=== PATIENT | female | born 1975 | race Caucasian/White ===

== ENCOUNTER 2020-04-08 08:52 | Outpatient (REF) | payer OTHER, SELFPAY ==
--- NOTE | 2020-04-08 08:59 | XR_ITS ---
EXAMINATION: XR KNEE, LEFT CLINICAL INFORMATION: Pain COMPARISON: None TECHNIQUE: Four views of the left knee. FINDINGS: There is mild varus angulation at the knee joint. Bone alignment is otherwise normal. No fracture or dislocation is seen. There is evidence of severe arthritis at the medial femoral tibial and patellofemoral joints with joint space narrowing and osteophyte formation. There is a large joint effusion. XR/XR knee LT 4V IMPRESSION: Severe left knee arthritis.
== END 2020-04-08 08:53 | disposition home or self-care (01) ==
LOC: HO.HMGCX 08:52
PROVIDERS: PCP Internal Medicine; Visit Provider Nurse Practitioner Family
DX: M25.562 Pain in left knee (principal)
CPT/HCPCS: 73564

== ENCOUNTER 2020-05-21 07:37 | Outpatient (REF) | payer OTHER, SELFPAY ==
[2020-05-21 11:34] LABS: Glucose Urine UA NEG (NEG); Hematocrit 40.2 % (37-47); Leukocyte Esterase Urine NEG (NEG); Mean Corpuscular HGB Conc 32.3 g/dl (31.0-35.0); Mean Corpuscular Hemoglobin 30.4 pg (27.0-33.0); Mean Corpuscular Volume 93.9 fL (80-98); Mean Platelet Volume 12.5 fL (9.4-12.3); Nitrite Urine NEG (NEG); PH 7.5 (5.0-8.0); Platelet Count 285 X10*3/uL (160-400); Red Blood Count 4.28 X10*6/uL (4.20-5.50); Red Cell Distribution Width 12.9 % (11.0-16.0); Specific Gravity - Urine 1.025 (1.005-1.025); Urine Blood TRACE (NEG); Urine Ketones NEG (NEG); Urine Protein 2+ MG/DL (NEG-TRACE); White Blood Count 9.2 X10*3/uL (4.8-10.8)
[2020-05-21 11:37] LABS: Appearance Urine HAZY; Color Urine YELLOW
[2020-05-21 11:51] LABS: Bacteria Urine 1+ /LPF; RBC Urine 0-2 /HPF (0); Squamous Epithelial Cell Urine 4+ /LPF; WBC Urine 0-2 /HPF (0-4)
[2020-05-21 11:58] LABS: Alanine Aminotransferase 25 U/L (0-31); Albumin Level 4.1 g/dL (3.5-5.0); Alkaline Phosphatase 40 U/L (39-117); Anion Gap 15 (12-20); Aspartate Amino Transferase 19 U/L (5-31); Bilirubin Total 0.5 mg/dL (0.0-1.0); Blood Urea Nitrogen 16 mg/dL (9-16); Calcium 8.8 mg/dL (8.4-10.2); Carbon Dioxide 26 mmol/L (22-29); Chloride 102 mmol/L (96-108); Cholesterol 308 mg/dL; Estimated Glomerular Filt Rate > 60; Glucose Random 87 mg/dL (60-115); HDL Cholesterol 54 mg/dL; Potassium 4.7 mmol/L (3.3-5.1); Sodium 138 mmol/L (135-145); Total Protein 6.9 g/dL (6.5-8.0); Triglycerides 441 mg/dL
[2020-05-21 12:20] LABS: TSH reflex Free T4 3.27 uIU/mL (0.32-4.0)
== END 2020-05-21 07:38 | disposition home or self-care (01) ==
LOC: HO.HMGCLDS 07:37
PROVIDERS: PCP Internal Medicine; Visit Provider Internal Medicine
DX: M17.12 Unilateral primary osteoarthritis, left knee (principal); I10 Essential (primary) hypertension; E78.5 Hyperlipidemia, unspecified
CPT/HCPCS: 20610; 36415; 80053; 80061; 81001; 84443; 85027; 99202; J1040

== ENCOUNTER 2020-07-15 07:01 | Outpatient (REF) | payer OTHER, SELFPAY ==
[2020-07-15 11:34] LABS: Glucose Urine UA NEG (NEG); Leukocyte Esterase Urine 1+ (NEG); Nitrite Urine NEG (NEG); Specific Gravity - Urine <= 1.005 (1.005-1.025); Urine Blood TRACE (NEG); Urine Ketones NEG (NEG); Urine Protein NEG (NEG-TRACE)
[2020-07-15 11:39] LABS: Appearance Urine CLEAR; Color Urine STRAW
[2020-07-15 11:54] LABS: RBC Urine 0 /HPF (0); Squamous Epithelial Cell Urine 2+ /LPF
[2020-07-15 11:57] LABS: Alanine Aminotransferase 21 U/L (0-31); Albumin Level 4.1 g/dL (3.5-5.0); Alkaline Phosphatase 41 U/L (39-117); Anion Gap 14 (12-20); Aspartate Amino Transferase 17 U/L (5-31); Bilirubin Total 0.4 mg/dL (0.0-1.0); Blood Urea Nitrogen 16 mg/dL (9-16); Carbon Dioxide 24 mmol/L (22-29); Chloride 105 mmol/L (96-108); Cholesterol 196 mg/dL; Estimated Glomerular Filt Rate > 60; Glucose Fasting 98 mg/dL (60-99); HDL Cholesterol 74 mg/dL; LDL Cholesterol Calculated 88 mg/dl; Potassium 4.6 mmol/L (3.3-5.1); Sodium 138 mmol/L (135-145); Total Protein 7.1 g/dL (6.5-8.0); Triglycerides 174 mg/dL
== END 2020-07-15 07:02 | disposition home or self-care (01) ==
LOC: HO.HMGCLDS 07:01
PROVIDERS: PCP Internal Medicine; Visit Provider Internal Medicine
DX: E78.5 Hyperlipidemia, unspecified (principal); I10 Essential (primary) hypertension
CPT/HCPCS: 36415; 80053; 80061; 81001

== ENCOUNTER 2020-07-29 08:46 | Outpatient (REF) | payer OTHER, SELFPAY ==
--- NOTE | ~2020-07-29 | US_ITS ---
EXAMINATION: US RETROPERITONEAL LIMITED (RENAL ONLY) and renal Doppler exam CLINICAL INFORMATION: Essential primary hypertension. COMPARISON: None TECHNIQUE: Grayscale imaging of the kidneys. Grayscale and color Doppler imaging of the aorta, bilateral renal arteries and renal veins including waveform spectral analysis. FINDINGS: RIGHT KIDNEY: 11.3 x 5 x 7 cm (SAG x AP x TRV). The kidney is normal in size, contour, and echogenicity. Renal cortical thickness is normal. No calculi or focal parenchymal lesions. No hydronephrosis. LEFT KIDNEY: 11.3 x 7.5 x 6.7 cm (SAG x AP x TRV). The kidney is normal in size, contour, and echogenicity. Renal cortical thickness is normal. No calculi or focal parenchymal lesions. No hydronephrosis. The visualized abdominal aorta is normal in caliber. Aortic peak velocity is slightly elevated at 134 cm/s. This makes calculation of the aorta and renal artery ratio inaccurate. Right renal artery is patent. Right renal artery peak systolic velocities are normal measuring 93 cm/s proximally, 129 cm/s in the midportion and 174 cm/s distally. Resistive indices of the segmental renal arteries in the right kidney are normal measuring 0.7. The right renal vein is patent. The left renal artery is patent. Left renal artery peak systolic velocities are normal measuring 119 cm/s proximally, 138 cm/s in the midportion and 100 cm/s distally. Resistive indices of the segmental renal arteries in the left kidney are normal measuring 0.6-0.7. The left renal vein is patent. US/US renal doppler IMPRESSION: Normal renal ultrasound. Slightly elevated peak systolic velocity in the mid abdominal aorta making calculation of the renal artery to aorta ratio is suboptimal. Otherwise normal renal Doppler exam.
--- NOTE | ~2020-07-29 | US_ITS ---
EXAMINATION: US RETROPERITONEAL LIMITED (RENAL ONLY) and renal Doppler exam CLINICAL INFORMATION: Essential primary hypertension. COMPARISON: None TECHNIQUE: Grayscale imaging of the kidneys. Grayscale and color Doppler imaging of the aorta, bilateral renal arteries and renal veins including waveform spectral analysis. FINDINGS: RIGHT KIDNEY: 11.3 x 5 x 7 cm (SAG x AP x TRV). The kidney is normal in size, contour, and echogenicity. Renal cortical thickness is normal. No calculi or focal parenchymal lesions. No hydronephrosis. LEFT KIDNEY: 11.3 x 7.5 x 6.7 cm (SAG x AP x TRV). The kidney is normal in size, contour, and echogenicity. Renal cortical thickness is normal. No calculi or focal parenchymal lesions. No hydronephrosis. The visualized abdominal aorta is normal in caliber. Aortic peak velocity is slightly elevated at 134 cm/s. This makes calculation of the aorta and renal artery ratio inaccurate. Right renal artery is patent. Right renal artery peak systolic velocities are normal measuring 93 cm/s proximally, 129 cm/s in the midportion and 174 cm/s distally. Resistive indices of the segmental renal arteries in the right kidney are normal measuring 0.7. The right renal vein is patent. The left renal artery is patent. Left renal artery peak systolic velocities are normal measuring 119 cm/s proximally, 138 cm/s in the midportion and 100 cm/s distally. Resistive indices of the segmental renal arteries in the left kidney are normal measuring 0.6-0.7. The left renal vein is patent. US/US renal BI IMPRESSION: Normal renal ultrasound. Slightly elevated peak systolic velocity in the mid abdominal aorta making calculation of the renal artery to aorta ratio is suboptimal. Otherwise normal renal Doppler exam.
== END 2020-07-29 08:47 | disposition home or self-care (01) ==
LOC: HO.US 08:46
PROVIDERS: Visit Provider Internal Medicine
DX: Q27.1 Congenital renal artery stenosis (principal); I10 Essential (primary) hypertension
CPT/HCPCS: 76775; 93975

== ENCOUNTER 2020-08-09 13:10 | Outpatient (REF) | payer OTHER, SELFPAY ==
--- NOTE | ~2020-08-09 | XR_ITS ---
EXAMINATION: XR HAND, LEFT CLINICAL INFORMATION: Carpal tunnel syndrome left hand. COMPARISON: None TECHNIQUE: PA, lateral, and oblique views of the left hand. FINDINGS: The bones and soft tissues are normal. No fracture. Alignment is anatomic. Joint spaces are maintained. No erosions or soft tissue calcifications. XR/XR hand LT min 3V IMPRESSION: Unremarkable left hand exam.
--- NOTE | ~2020-08-09 | XR_ITS ---
EXAMINATION: XR KNEE, RIGHT CLINICAL INFORMATION: Pain COMPARISON: Previous x-ray January 2017 TECHNIQUE: Four views of the right knee. FINDINGS: Bone alignment is normal. No fracture or dislocation is seen. There is arthritis at the medial femoral tibial and patellofemoral joints with joint space narrowing and osteophyte formation. There is a bony excrescence projecting off the lateral tibial metaphysis likely representing bony exostosis. This is unchanged. There may be a similar lesion projecting off the posterior tibial metaphysis as well that is stable. There is a small joint effusion. XR/XR knee RT 2V IMPRESSION: Mild arthritis. Stable bony exostosis.
== END 2020-08-09 13:11 | disposition home or self-care (01) ==
LOC: HO.HMGCX 13:10
PROVIDERS: PCP Internal Medicine; Visit Provider Internal Medicine
DX: G56.00 Carpal tunnel syndrome, unspecified upper limb (principal); M25.561 Pain in right knee; M25.562 Pain in left knee
CPT/HCPCS: 73130; 73560

== ENCOUNTER 2020-09-05 08:12 | Outpatient (REF) | payer OTHER, SELFPAY ==
[2020-09-05 11:45] LABS: Glucose Urine UA NEG (NEG); Leukocyte Esterase Urine NEG (NEG); Nitrite Urine NEG (NEG); PH 6.5 (5.0-8.0); Specific Gravity - Urine <= 1.005 (1.005-1.025); Urine Blood NEG (NEG); Urine Ketones NEG (NEG); Urine Protein NEG (NEG-TRACE)
[2020-09-05 12:00] LABS: Appearance Urine CLEAR; Color Urine YELLOW
[2020-09-05 12:35] LABS: Alanine Aminotransferase 25 U/L (0-31); Albumin Level 4.4 g/dL (3.5-5.0); Alkaline Phosphatase 45 U/L (39-117); Anion Gap 13 (12-20); Aspartate Amino Transferase 18 U/L (5-31); Bilirubin Total 0.5 mg/dL (0.0-1.0); Blood Urea Nitrogen 16 mg/dL (9-16); Calcium 9.3 mg/dL (8.4-10.2); Carbon Dioxide 25 mmol/L (22-29); Chloride 105 mmol/L (96-108); Cholesterol 230 mg/dL; Estimated Glomerular Filt Rate > 60; Glucose Fasting 100 mg/dL (60-99); HDL Cholesterol 80 mg/dL; LDL Cholesterol Calculated 131 mg/dl; Potassium 4.8 mmol/L (3.3-5.1); Sodium 138 mmol/L (135-145); Total Protein 7.5 g/dL (6.5-8.0); Triglycerides 98 mg/dL
[2020-09-05 12:37] LABS: RBC Urine 0 /HPF (0); Squamous Epithelial Cell Urine 3+ /LPF; WBC Urine 0-2 /HPF (0-4)
[2020-09-05 12:38] LABS: Bacteria Urine TRACE /LPF
== END 2020-09-05 08:13 | disposition home or self-care (01) ==
LOC: HO.HMGCLDS 08:12
PROVIDERS: PCP Internal Medicine; Visit Provider Internal Medicine
DX: E78.5 Hyperlipidemia, unspecified (principal); I10 Essential (primary) hypertension
CPT/HCPCS: 36415; 80053; 80061; 81001

== ENCOUNTER → 2020-11-05 08:14 | Outpatient (BNVA) | payer OTHER, SELFPAY | PROVIDERS: Visit Provider Orthopaedic Surgery | DX: M17.12 Unilateral primary osteoarthritis, left knee (principal) | CPT/HCPCS: 20610; 99212; J1040 ==

== ENCOUNTER 2020-12-12 07:46 | Outpatient (REF) | payer OTHER, SELFPAY ==
[2020-12-12 12:00] LABS: Alanine Aminotransferase 15 U/L (0-31); Albumin Level 4.1 g/dL (3.5-5.0); Alkaline Phosphatase 50 U/L (39-117); Anion Gap 15 (12-20); Aspartate Amino Transferase 17 U/L (5-31); Bilirubin Total 0.4 mg/dL (0.0-1.0); Blood Urea Nitrogen 12 mg/dL (9-16); Calcium 9.5 mg/dL (8.4-10.2); Carbon Dioxide 23 mmol/L (22-29); Chloride 105 mmol/L (96-108); Cholesterol 219 mg/dL; Estimated Glomerular Filt Rate > 60; Glucose Fasting 90 mg/dL (60-99); HDL Cholesterol 74 mg/dL; LDL Cholesterol Calculated 104 mg/dl; Potassium 4.3 mmol/L (3.3-5.1); Sodium 139 mmol/L (135-145); Triglycerides 205 mg/dL
== END 2020-12-12 07:47 | disposition home or self-care (01) ==
LOC: HO.HMGCLDS 07:46
PROVIDERS: PCP Internal Medicine; Visit Provider Internal Medicine
DX: I10 Essential (primary) hypertension (principal); E78.5 Hyperlipidemia, unspecified
CPT/HCPCS: 36415; 80053; 80061

== ENCOUNTER 2021-06-02 08:29 | Outpatient (REF) | payer OTHER, SELFPAY | END 2021-06-02 08:30 | disposition home or self-care (01) | LOC: HO.HOSX 08:29 | PROVIDERS: Visit Provider Orthopaedic Surgery | DX: Z13.89 Encounter for screening for other disorder (principal) ==

== ENCOUNTER 2021-06-30 08:30 | Outpatient (REF) | payer OTHER, SELFPAY ==
--- NOTE | ~2021-06-30 | XR_ITS ---
EXAMINATION: XR KNEE AP STANDING CLINICAL INFORMATION: Pain. COMPARISON: None TECHNIQUE: AP bilateral standing view of the knees was obtained. FINDINGS: There is loss of medial compartment joint space both knees with periarticular spurring. Also visualized is mild loss of lateral compartment left knee joint with periarticular spurring. There is exostosis distal lateral cortex right femur XR/XR knee standing BI IMPRESSION: Degenerative arthritic changes bilateral knee joints without any visible acute fracture or dislocation.
== END 2021-06-30 08:31 | disposition home or self-care (01) ==
LOC: HO.HOSX 08:30
PROVIDERS: Visit Provider Orthopaedic Surgery
DX: M17.0 Bilateral primary osteoarthritis of knee (principal); D16.20 Benign neoplasm of long bones of unspecified lower limb
CPT/HCPCS: 20610; 73565; 99212; J1100

== ENCOUNTER → 2021-11-13 12:29 | Outpatient (BNVA) | payer OTHER, SELFPAY | PROVIDERS: PCP Internal Medicine; Visit Provider Orthopaedic Surgery | DX: M17.0 Bilateral primary osteoarthritis of knee (principal); D16.20 Benign neoplasm of long bones of unspecified lower limb | CPT/HCPCS: 20610; 99212; J1100 ==

== ENCOUNTER 2022-11-12 13:46 | Outpatient (AMB) | payer OTHER, SELFPAY ==
--- NOTE | 2022-11-12 14:04 | MHC.OFFVIS ---
Intake Intake Visit Reasons: OV- L knee oa Last inj 11/13/21 Intake Note: Lucy is a 47 year old female who presents today for a follow up of her left knee OA. Last Injection was done on 11/13/21. Patient reports that she had great releif from the injections and would like to repeat injections today. She explains that she had a significant increase in pain for 3 days following the injections. Allergies No Known Allergies Allergy (Verified 06/30/21 08:46) HPI OV- L knee oa Last inj 11/13/21 HPI Details Lucy is a 47 year old woman with bilateral knee OA. She presents with complaints of worsening left knee pain. She has a hx of knee injections, her right knee was last injected on 06/30/21 and her left on 11/13/21, with good relief. She would like to repeat her knee injections today. She is planning to travel to [place] in the next few weeks and wants to be able to walk without pain. She says following her last injection she had severe pain for ~3 days afterwards that limited her ability to walk. After these days she says her pain improved and she was able to engage in daily activity without issue [facility] [place] Medical History Accelerated essential hypertension Carpal tunnel syndrome HTN (hypertension) Hyperlipidemia Knee pain, bilateral Normal Pap smear Family History Father Heart problem HTN (hypertension) Mother No problems noted. 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 Site was prepped using aseptic technique. Patient tolerated the procedure well. Primary Site: right knee Secondary Site: left knee Approach Used: anterolateral Coding 94780 - Large joint 22642 - Glenohumeral/Tronchanteric Bursa/Intraarticular Procedure code (CPT) selection complete Results Reviewed Results Reviewed: 11/12/22 14:04 BUPivacaine MPF 0.25 % [Sensorcaine-MPF 0.25% 10 ML] 10 ml .ROUTE .STK-MED ONE Lidocaine HCl 1 % [Xylocaine 1 %] 2 ml .ROUTE .STK-MED ONE Lidocaine HCl 2 % MPF [Xylocaine 2 % MPF] 5 ml .ROUTE .STK-MED ONE dexAMETHasone sod phosphate [Decadron] 4 mg .ROUTE .STK-MED ONE I personally reviewed relevant radiographs. Tricompartmental osteoarthritis bilateral knees. On the left there is severe medial joint space loss with varus alignment. On the right there is tricompartmental disease with the prominent osteochondroma over the distal lateral femur. Assessment & Plan Assessment & Plan (1) Primary localized osteoarthritis of knees, bilateral: Code(s): M17.0 - Bilateral primary osteoarthritis of knee Plan: Lucy is a 46 year old woman with bilateral knee OA, L>R. Her right knee was last injected on 06/30/21, and her left on 11/13/21, with good relief. She has pain in her knees with daily activity, worse with using stairs, standing from a seated position, or prolonged ambulation. I discussed treatment options. I injected her bilateral knees today, which she tolerated well. She can follow up prn Plan Scribed for Scot Jones MD by Juvencio Vail, mobile paramedical examiner, on 11/12/22 at 2:20 PM, EST. Coding Level of Care Code Est Pt Level 3 (00904) Diagnoses Primary localized osteoarthritis of knees, bilateral M17.0 CPT Codes Coding - Large joint: 20395 - Large joint ([id number]) Coding - Joint 7: 43056 - Glenohumeral/Tronchanteric Bursa/Intraarticular ([id number])
== END 2022-11-12 14:40 | disposition home or self-care (01) ==
PROVIDERS: PCP Internal Medicine; Visit Provider Orthopaedic Surgery
DX: M17.0 Bilateral primary osteoarthritis of knee (principal)
CPT/HCPCS: 20610; 99213

== ENCOUNTER → 2022-11-12 13:46 | Outpatient (BNVA) | payer OTHER, SELFPAY | PROVIDERS: PCP Internal Medicine; Visit Provider Orthopaedic Surgery | DX: M17.0 Bilateral primary osteoarthritis of knee (principal) | CPT/HCPCS: 20610; 99212; J1100 ==

== ENCOUNTER 2022-11-23 12:25 | Outpatient (AMB) | payer OTHER, SELFPAY ==
--- NOTE | 2022-11-23 13:04 | MHC.PC.OV ---
Vital Signs 11/23/22 13:06 Height 5 ft 4 in Weight 208 lb BMI 35.7 BP 110/70 Blood Pressure Location Rt brachial Position Sitting Pulse 73 Pulse Source Pulse Oximeter Pulse Oximetry (%) 96 Oxygen Delivery Method Room Air Intake Visit Reasons: follow up medical Intake Note: Pt is here today for a follow up visit. Pt states that her ankles are swollen. Allergies No Known Allergies Allergy (Verified 11/23/22 13:16) Medication List - Last Reconciled 11/23/22 by Maribell Neff MD amlodipine 10 mg PO DAILY atenolol 50 mg PO DAILY atorvastatin 20 mg PO DAILY lisinopril 30 mg PO DAILY meloxicam 15 mg PO DAILY [id number]-Au-entb-minerals (Women's Daily Formula) tabs PO naproxen sodium 220 mg PO BID PRN ofloxacin 0.3% 10 drps otic (ears) DAILY 7 days Tobacco use date assessed: 11/23/22 Dental Screening Dental Screen Date: 11/23/22 Did you have a dental visit in the last 12 months?: Yes Did you have a dental problem in the last 6 months where you did not have access to dental care?: No Was dental information given to patient?: Patient has dentist HPI follow up medical HPI Details Patient presents for the follow-up on hypertension. Patient reports chronic lower extremity edema worse in the summer. She denies shortness of breath PND orthopnea cough abdominal pain PFSH Medical History Accelerated essential hypertension Carpal tunnel syndrome HTN (hypertension) Hyperlipidemia Knee pain, bilateral Normal Pap smear Family History Father Heart problem HTN (hypertension) Mother No problems noted. 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 1. Little interest or pleasure in doing things: not at all 2. Feeling down, depressed, or hopeless: not at all 3. Trouble falling or staying asleep, or sleeping too much: not at all 4. Feeling tired or having little energy: not at all 5. Poor appetite or overeating: not at all 6. Feeling bad about yourself - or that you are a failure or have let yourself or your family down: not at all 7. Trouble concentrating on things, such as reading the newspaper or watching television: not at all 8. Moving or speaking so slowly that other people could have noticed. Or the opposite - being so fidgety or restless that you have been moving around a lot more than usual: not at all 9. Thoughts that you would be better off or of hurting yourself in some way: not at all Total score: 0 Depression Screening Interpretation: Negative Source: Developed by Drs. Ta Wright, Taryn Castellanos, Jair Hawthorne and colleagues, with an educational margaret from [employer]. Thrive Questionnaire Date Thrive assessed: 11/23/22 I am a: Patient What is your living situation today?: I have a steady place to live Within the past 12 months, did the food you bought not last and you didn't have the money to get more?: Never true Within the past 12 months, did you worry whether your food would run out before you got money to buy more?: Never true Do you have trouble paying for medicines?: No Do you have trouble getting transportation to medical appointments?: No Do you have trouble paying your heating and electricity bill?: No Do you have trouble taking care of your child, family member or friend?: No Do you have trouble with day-to-day activities such as bathing, preparing meals, shopping, managing finances, etc.?: No Are you currently unemployed and looking for a job?: No Are you interested in more education?: No Please select the resources that you would like help with: None Currently or been in a relationship where the following occur: no concerns reported AUDIT C Alcohol Use Questionnaire (AUDIT-C) 1. How often do you have a drink containing alcohol?: Monthly or less 2. How many drinks containing alcohol do you have on a typical day when you are drinking?: 1 or 2 3. How often do you have six or more drinks on one occasion?: Never Total Score: 1 LETY-7 AMB Questionnaire LETY-7 Date LETY - 7 assessed: 11/23/22 Feeling nervous, anxious, or on edge: 0 = Not at all Not being able to stop or control worryin = Not at all Worrying too much about different things: 0 = Not at all Trouble relaxin = Not at all Being so restless that it is hard to sit still: 0 = Not at all Becoming easily annoyed or irritable: 0 = Not at all Feeling afraid as if something awful might happen: 0 = Not at all Total LETY-7 score (0-4 normal; 5-9 mild; 10-14 moderate; 15-21 severe): 0 Source: Developed by Drs. Ta Wright, Taryn Castellanos, Jair Hawthorne and colleagues, with an educational margaret from [employer]. Review of Systems Const Reports no additional complaints ENT Reports no additional complaints Card Reports no additional complaints Resp Reports no additional complaints GI Reports no additional complaints Physical exam (Primary Care) Vital Signs: Last Vital Signs Pulse 73 11/23/22 13:06 BP 110/70 11/23/22 13:06 Pulse Ox 96 11/23/22 13:06 Oxygen Delivery Method Room Air 11/23/22 13:06 BMI result Body Mass Index 35.7 Tobacco/Smoking Status: Tobacco use Status Tobacco use date assessed 11/23/22 11/23/22 13:05 Patient Tobacco Use Status Never used Tobacco 11/23/22 13:20 e-Cigarette/Vaping Use Never Used 11/23/22 13:05 PHQ-9: PHQ-9 Score PHQ-9: Total score 0 11/23/22 13:26 Depression Screening Interpretation: Negative Thrive Assessment: Date of Thrive Assessment Date Thrive assessed 11/23/22 11/23/22 13:26 Currently or been in a relationship where the following occur: no concerns reported Const General: no acute distress HENMT Head: Yes normal to inspection Ears: hearing grossly normal bilaterally Neck Neck: Yes supple Resp Effort & Inspection: normal respiratory effort Auscultation: clear to auscultation bilaterally Cardio Rhythm: regular rhythm Heart sounds: S1 normal heart sound present and S2 normal heart sound present GI Inspection: Yes normal to inspection Extrem Other: 2+ nonpitting edema bilaterally Assessment and Plan Assessment & Plan (1) Accelerated essential hypertension: Code(s): I10 - Essential (primary) hypertension Plan: Decrease amlodipine to 5 mg a day ( because of lower extremity edema) and increase lisinopril to 40 mg. Patient will continue atenolol. She will follow-up in 2 months. Patient have a fasting blood work today (2) HTN (hypertension): Code(s): I10 - Essential (primary) hypertension (3) Hyperlipidemia: Code(s): E78.5 - Hyperlipidemia, unspecified Plan: Continue low-cholesterol diet Orders: Orders Comprehensive [place]. Panel Fast Today E78.5 - Hyperlipidemia, unspecified, I10 - Essential (primary) hypertension Lipid Panel Today E78.5 - Hyperlipidemia, unspecified, I10 - Essential (primary) hypertension Complete Blood Count Auto Diff Today E78.5 - Hyperlipidemia, unspecified, I10 - Essential (primary) hypertension TSH reflex Free T4 Today E78.5 - Hyperlipidemia, unspecified, I10 - Essential (primary) hypertension Medications: New lisinopril 40 mg PO DAILY 90 tabs 1RF amlodipine 5 mg PO DAILY 90 tabs 1RF Refilled atenolol 50 mg PO DAILY 90 tabs 3RF atorvastatin 20 mg PO DAILY 90 tabs 3RF Discontinued lisinopril Discontinued Reason: Doctor's Order 30 mg PO DAILY 90 tabs 3RF amlodipine Call to schedule next PCP appt Discontinued Reason: Doctor's Order 10 mg PO DAILY 90 tabs 3RF Coding Level of Care Code Est Pt Level 3 (89723) Diagnoses Accelerated essential hypertension I10 HTN (hypertension) I10 Hyperlipidemia E78.5
[2022-11-23 13:06] VITALS: BP 110/70; PULSE 73; O2SAT 96; BMI 35.7
== END 2022-11-23 14:02 | disposition home or self-care (01) ==
PROVIDERS: PCP Internal Medicine; Visit Provider Internal Medicine
DX: I10 Essential (primary) hypertension (principal); E78.5 Hyperlipidemia, unspecified
CPT/HCPCS: 99213

== ENCOUNTER 2022-11-23 13:49 | Outpatient (REF) | payer OTHER, SELFPAY ==
[2022-11-23 16:54] LABS: MANUAL DIFF FLAG NO
[2022-11-23 17:09] LABS: Basophils Absolute Auto 0.1 X10*3/uL (0.0-0.2); Basophils Percent Auto 0.7 % (0-2); Eosinophils Absolute Auto 0.3 X10*3/uL (0.0-0.4); Hematocrit 39.5 % (37.0-47.0); Hemoglobin 12.9 g/dl (12.0-16.0); Imm Gran Abs Auto 0.03 X10*3/uL (0.00-0.03); Imm Gran Pct Auto 0.3 % (0.0-0.4); Lymphocytes Percent Auto 31.4 % (20-40); Mean Corpuscular HGB Conc 32.7 g/dl (31.0-35.0); Mean Corpuscular Hemoglobin 30.4 pg (27.0-33.0); Mean Corpuscular Volume 93.2 fL (80.0-98.0); Mean Platelet Volume 12.2 fL (9.4-12.3); Monocytes Absolute Auto 0.7 X10*3/uL (0.1-1.2); Monocytes Percent Auto 7.2 % (2-11); Neutrophils Absolute Auto 5.6 x10*3/uL (2.0-8.3); Neutrophils Percent Auto 57.4 % (45-73); Platelet Count 281 X10*3/uL (160-400); Red Blood Count 4.24 X10*6/uL (4.20-5.50); Red Cell Distribution Width 13.9 % (11.0-16.0); White Blood Count 9.7 X10*3/uL (4.8-10.8)
[2022-11-23 17:35] LABS: Alanine Aminotransferase 22 U/L (0-31); Albumin Level 4.1 g/dL (3.5-5.0); Alkaline Phosphatase 39 U/L (39-117); Anion Gap 14 (12-20); Aspartate Amino Transferase 17 U/L (5-31); Bilirubin Total 0.4 mg/dL (0.0-1.0); Blood Urea Nitrogen 14 mg/dL (9-16); Calcium 9.8 mg/dL (8.4-10.2); Carbon Dioxide 24 mmol/L (22-29); Chloride 105 mmol/L (96-108); Cholesterol 250 mg/dL (<200); Estimated Glomerular Filt Rate > 60; Glucose Fasting 88 mg/dL (60-99); HDL Cholesterol 69 mg/dL (>40); LDL Cholesterol Calculated 132 mg/dL (<100); Potassium 3.9 mmol/L (3.3-5.1); Sodium 139 mmol/L (135-145); Total Protein 7.5 g/dL (6.5-8.0); Triglycerides 247 mg/dL (<150)
[2022-11-23 17:37] LABS: TSH reflex Free T4 1.89 uIU/mL (0.32-4.0)
== END 2022-11-23 13:50 | disposition home or self-care (01) ==
LOC: HO.HMGCLDS 13:49
PROVIDERS: PCP Internal Medicine; Visit Provider Internal Medicine
DX: E78.5 Hyperlipidemia, unspecified (principal); I10 Essential (primary) hypertension
CPT/HCPCS: 36415; 80053; 80061; 84443; 85025

== ENCOUNTER 2023-03-19 06:33 | Outpatient (REF) | payer OTHER, SELFPAY ==
[2023-03-19 11:52] LABS: Alanine Aminotransferase 26 U/L (0-31); Alkaline Phosphatase 44 U/L (39-117); Anion Gap 11 (12-20); Aspartate Amino Transferase 21 U/L (5-31); Bilirubin Total 0.4 mg/dL (0.0-1.0); Blood Urea Nitrogen 17 mg/dL (9-16); Carbon Dioxide 24 mmol/L (22-29); Chloride 106 mmol/L (96-108); Cholesterol 190 mg/dL (<200); Estimated Glomerular Filt Rate > 60; Glucose Fasting 106 mg/dL (60-99); HDL Cholesterol 59 mg/dL (>40); LDL Cholesterol Calculated 104 mg/dL (<100); Potassium 3.9 mmol/L (3.3-5.1); Sodium 137 mmol/L (135-145); Total Protein 7.2 g/dL (6.5-8.0); Triglycerides 135 mg/dL (<150)
== END 2023-03-19 06:34 | disposition home or self-care (01) ==
LOC: HO.HMGCLDS 06:33
PROVIDERS: PCP Internal Medicine; Visit Provider Internal Medicine
DX: I10 Essential (primary) hypertension (principal); E78.5 Hyperlipidemia, unspecified
CPT/HCPCS: 36415; 80053; 80061

== ENCOUNTER 2023-03-22 12:54 | Outpatient (AMB) | payer SELFPAY ==
--- NOTE | 2023-03-22 13:56 | MHC.PC.OV ---
Vital Signs 03/22/23 13:57 Height 5 ft 4 in Weight 208 lb BMI 35.7 BP 150/92 H Blood Pressure Location Lt brachial Position Sitting Pulse 63 Pulse Source Pulse Oximeter Pulse Oximetry (%) 96 Oxygen Delivery Method Room Air Intake Visit Reasons: 3 month fu Intake Note: Pt is here today for 3 months follow up visit. Allergies No Known Allergies Allergy (Verified 03/22/23 14:02) Tobacco use date assessed: 03/22/23 HPI 3 month fu HPI Details PATIENT PRESENTS FOR THE FOLLOW-UP ON HYPERTENSION AND HYPERLIPIDEMIA. [facility] Medical History (Updated 03/22/23 @ 14:51 by Maribell Neff MD) Knee pain, bilateral Carpal tunnel syndrome Accelerated essential hypertension Normal Pap smear Hyperlipidemia HTN (hypertension) Family History Father Heart problem HTN (hypertension) Mother No problems noted. 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 Ta Wright, Taryn Castellanos, Jair Hawthorne and colleagues, with an educational margaret from [employer]. Review of Systems Const All systems reviewed & are unremarkable except as noted in HPI and below Reports no additional complaints Eyes Reports no additional complaints ENT Reports no additional complaints Card Reports no additional complaints Resp Reports no additional complaints GI Reports no additional complaints Reports no additional complaints Physical exam (Primary Care) Vital Signs: Last Vital Signs Pulse 63 03/22/23 13:57 BP 150/92 H 03/22/23 13:57 Pulse Ox 96 03/22/23 13:57 Oxygen Delivery Method Room Air 03/22/23 13:57 BMI result Body Mass Index 35.7 Tobacco/Smoking Status: Tobacco use Status Tobacco use date assessed 03/22/23 03/22/23 14:05 Patient Tobacco Use Status Never used Tobacco 03/22/23 13:57 e-Cigarette/Vaping Use Never Used 03/22/23 13:57 Thrive Assessment: Date of Thrive Assessment Date Thrive assessed 11/23/22 03/22/23 13:57 Const General: no acute distress HENMT Ears: hearing grossly normal bilaterally Face and sinus: Yes normal facial exam Throat: Yes posterior oropharynx normal Neck Neck: Yes no lymphadenopathy Resp Effort & Inspection: normal respiratory effort Auscultation: clear to auscultation bilaterally Cardio Rhythm: regular rhythm Heart sounds: S1 normal heart sound present and S2 normal heart sound present GI Inspection: Yes normal to inspection Palpation (GI): Soft to palpation Assessment and Plan Assessment & Plan (1) HTN (hypertension): Code(s): I10 - Essential (primary) hypertension Plan: Add Dyazide and decrease atenolol to half a tablet a day because of low heart rate, BMP will be checked in 2 weeks and patient will follow-up in 1 month (2) Hyperlipidemia: Code(s): E78.5 - Hyperlipidemia, unspecified Plan: Continue current medication and fish oil (3) Colonoscopy refused: Comment: 03/27, Cologuard ordered Code(s): Z53.20 - Procedure and treatment not carried out because of patient's decision for unspecified reasons Orders: Orders Basic Metabolic Panel 2 Weeks E78.5 - Hyperlipidemia, unspecified, I10 - Essential (primary) hypertension Referrals Cologuard Test Z12.11 - Encounter for screening for malignant neoplasm of colon, Z12.12 - Encounter for screening for malignant neoplasm of rectum Medications: New triamterene-hydrochlorothiazid 37.5-25 mg 1 tab PO DAILY 90 tabs 1RF Coding Level of Care Code Est Pt Level 3 (70966) Diagnoses HTN (hypertension) I10 Hyperlipidemia E78.5 Colonoscopy refused Z53.20
[2023-03-22 13:57] VITALS: BP 150/92; PULSE 63; O2SAT 96; BMI 35.7
== END 2023-03-22 14:47 | disposition home or self-care (01) ==
PROVIDERS: PCP Internal Medicine; Visit Provider Internal Medicine
DX: I10 Essential (primary) hypertension (principal); E78.5 Hyperlipidemia, unspecified; Z53.20 Procedure and treatment not carried out because of patient's decision for unspecified reasons
CPT/HCPCS: 99213

== ENCOUNTER 2023-05-03 06:48 | Outpatient (REF) | payer SELFPAY ==
[2023-05-03 12:17] LABS: Anion Gap 14 (12-20); Blood Urea Nitrogen 17 mg/dL (9-16); Calcium 9.1 mg/dL (8.4-10.2); Carbon Dioxide 22 mmol/L (22-29); Chloride 106 mmol/L (96-108); Estimated Glomerular Filt Rate > 60; Glucose Random 100 mg/dL (60-115); Sodium 138 mmol/L (135-145)
== END 2023-05-03 06:49 | disposition home or self-care (01) ==
LOC: HO.HMGCLDS 06:48
PROVIDERS: PCP Internal Medicine; Visit Provider Internal Medicine
DX: I10 Essential (primary) hypertension (principal); E78.5 Hyperlipidemia, unspecified
CPT/HCPCS: 36415; 80048

== ENCOUNTER 2023-05-03 09:54 | Outpatient (AMB) | payer SELFPAY ==
[2023-05-03 09:58] VITALS: BP 140/84; PULSE 65; O2SAT 96; BMI 36.4
--- NOTE | 2023-05-03 09:58 | MHC.PC.OV ---
Vital Signs 05/03/23 09:58 05/03/23 10:59 Height 5 ft 4 in Weight 212 lb BMI 36.4 BP 140/84 H 130/80 Blood Pressure Location Lt brachial Position Sitting Pulse 65 Pulse Source Pulse Oximeter Pulse Oximetry (%) 96 Oxygen Delivery Method Room Air Intake Visit Reasons: 1 Month follow up Intake Note: Pt is here today for 1 month follow up visit. Allergies No Known Allergies Allergy (Verified 05/03/23 10:00) Medication List - Last Reconciled 05/03/23 by Maribell Neff MD amlodipine 5 mg PO DAILY atenolol 50 mg PO DAILY atorvastatin 20 mg PO DAILY lisinopril 40 mg PO DAILY meloxicam 15 mg PO DAILY tnicdljjnceb-Jb-namn-minerals (Women's Daily Formula) tabs PO naproxen sodium 220 mg PO BID PRN ofloxacin 0.3% 10 drps otic (ears) DAILY 7 days triamterene-hydrochlorothiazid 37.5-25 mg 1 tab PO DAILY Tobacco use date assessed: 05/03/23 Dental Screening Dental Screen Date: 05/03/23 Did you have a dental visit in the last 12 months?: Yes Did you have a dental problem in the last 6 months where you did not have access to dental care?: No Was dental information given to patient?: Patient has dentist HPI 1 Month follow up HPI Details Patient presents for the follow-up on hypertension. [facility] Medical History (Updated 05/03/23 @ 11:04 by Maribell Neff MD) Knee pain, bilateral Carpal tunnel syndrome Accelerated essential hypertension Normal Pap smear Hyperlipidemia HTN (hypertension) Family History Father Heart problem HTN (hypertension) Mother No problems noted. 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 1. Little interest or pleasure in doing things: not at all 2. Feeling down, depressed, or hopeless: not at all 3. Trouble falling or staying asleep, or sleeping too much: not at all 4. Feeling tired or having little energy: not at all 5. Poor appetite or overeating: not at all 6. Feeling bad about yourself - or that you are a failure or have let yourself or your family down: not at all 7. Trouble concentrating on things, such as reading the newspaper or watching television: not at all 8. Moving or speaking so slowly that other people could have noticed. Or the opposite - being so fidgety or restless that you have been moving around a lot more than usual: not at all 9. Thoughts that you would be better off or of hurting yourself in some way: not at all Total score: 0 Depression Screening Interpretation: Negative Depression Screening Done: Yes Source: Developed by Drs. Ta Wright, Taryn Castellanos, Jair Hawthorne and colleagues, with an educational margaret from [employer]. Thrive Questionnaire Date Thrive assessed: 05/03/23 I am a: Patient What is your living situation today?: I have a steady place to live Within the past 12 months, did the food you bought not last and you didn't have the money to get more?: Never true Within the past 12 months, did you worry whether your food would run out before you got money to buy more?: Never true Do you have trouble paying for medicines?: No Do you have trouble getting transportation to medical appointments?: No Do you have trouble paying your heating and electricity bill?: No Do you have trouble taking care of your child, family member or friend?: No Do you have trouble with day-to-day activities such as bathing, preparing meals, shopping, managing finances, etc.?: No Are you currently unemployed and looking for a job?: No Are you interested in more education?: No Please select the resources that you would like help with: None Currently or been in a relationship where the following occur: no concerns reported THRIVE Score: 0 AUDIT C Alcohol Use Questionnaire (AUDIT-C) 1. How often do you have a drink containing alcohol?: Monthly or less 2. How many drinks containing alcohol do you have on a typical day when you are drinking?: 1 or 2 3. How often do you have six or more drinks on one occasion?: Never Total Score: 1 LETY-7 AMB Questionnaire LETY-7 Date LETY - 7 assessed: 05/03/23 Feeling nervous, anxious, or on edge: 0 = Not at all Not being able to stop or control worryin = Not at all Worrying too much about different things: 0 = Not at all Trouble relaxin = Not at all Being so restless that it is hard to sit still: 0 = Not at all Becoming easily annoyed or irritable: 0 = Not at all Feeling afraid as if something awful might happen: 0 = Not at all Total LETY-7 score (0-4 normal; 5-9 mild; 10-14 moderate; 15-21 severe): 0 Source: Developed by Drs. Ta Wright, Taryn Castellanos, Jair Hawthorne and colleagues, with an educational margaret from [employer]. Review of Systems Const All systems reviewed & are unremarkable except as noted in HPI and below Reports no additional complaints Eyes Reports no additional complaints ENT Reports no additional complaints Card Reports no additional complaints Resp Reports no additional complaints Physical exam (Primary Care) Vital Signs: Last Vital Signs Pulse 65 05/03/23 09:58 BP 140/84 H 05/03/23 09:58 Pulse Ox 96 05/03/23 09:58 Oxygen Delivery Method Room Air 05/03/23 09:58 BMI result Body Mass Index 36.4 Tobacco/Smoking Status: Tobacco use Status Tobacco use date assessed 05/03/23 05/03/23 10:08 Patient Tobacco Use Status Never used Tobacco 05/03/23 10:00 e-Cigarette/Vaping Use Never Used 05/03/23 10:00 PHQ-9: PHQ-9 Score PHQ-9: Total score 0 05/03/23 10:08 Depression Screening Interpretation: Negative Thrive Assessment: Date of Thrive Assessment Date Thrive assessed 05/03/23 05/03/23 10:08 Currently or been in a relationship where the following occur: no concerns reported Const General: no acute distress Eyes General: appearance normal, both eyes and all related structures Neck Neck: Yes supple Resp Effort & Inspection: normal respiratory effort Auscultation: clear to auscultation bilaterally Cardio Rhythm: regular rhythm Heart sounds: S1 normal heart sound present and S2 normal heart sound present Assessment and Plan Assessment & Plan (1) Accelerated essential hypertension: Code(s): I10 - Essential (primary) hypertension Plan: Continue current medications. Increase physical activity weight loss discussed with the patient follow-up in 2 months. (2) Colonoscopy refused: Comment: 04/28, Cologuakodi negative Code(s): Z53.20 - Procedure and treatment not carried out because of patient's decision for unspecified reasons Coding Level of Care Code Est Pt Level 3 (46116) Diagnoses Accelerated essential hypertension I10 Colonoscopy refused Z53.20
[2023-05-03 10:59] VITALS: BP 130/80
== END 2023-05-03 11:05 | disposition home or self-care (01) ==
PROVIDERS: PCP Internal Medicine; Visit Provider Internal Medicine
DX: I10 Essential (primary) hypertension (principal); Z53.20 Procedure and treatment not carried out because of patient's decision for unspecified reasons
CPT/HCPCS: 99213

== ENCOUNTER 2024-05-01 08:20 | Outpatient (REF) | payer OTHER, SELFPAY ==
--- NOTE | ~2024-05-01 | XR_ITS ---
EXAMINATION: XR TOES, LEFT CLINICAL INFORMATION: S90.112A - Contusion of left great toe without damage to nail, initial e... COMPARISON: None available. TECHNIQUE: 3 views of the left toes were obtained. FINDINGS: There are no fractures or dislocations. No joint effusion is identified. No bone, joint or soft tissue abnormality is demonstrated. XR/XR toe LT min 2V IMPRESSION: Unremarkable examination. Electronically signed by: Kyle Vines MD 05/01/2024 09:33 AM CEDRIC
== END 2024-05-01 08:21 | disposition home or self-care (01) ==
LOC: HO.HMGCX 08:20
PROVIDERS: PCP Internal Medicine; Visit Provider Nurse Practitioner Family
DX: S90.212A Contusion of left great toe with damage to nail, initial encounter (principal)
CPT/HCPCS: 73660; 99212

== ENCOUNTER 2024-05-01 08:20 | Outpatient (AMB) | payer OTHER, SELFPAY ==
[2024-05-01 08:29] VITALS: BP 154/100; PULSE 72; TEMP 36.5; O2SAT 97; BMI 36.7
--- NOTE | 2024-05-01 08:29 | AM.OFFWIN_ITS ---
Intake Vital Signs 3 05/01/24 08:29 Height 5 ft 4 in Weight 214 lb BMI 36.7 BP 154/100 H Blood Pressure Location Rt brachial Position Sitting Pulse 72 Pulse Source Pulse Oximeter Temp 97.7 F Temp Source Oral Pulse Oximetry (%) 97 Oxygen Delivery Method Room Air Intake Visit Reasons: EP-lt foot cyst grow and it may be infected Intake Note: Pt is here today c/o Lt foot grt toe red and swollen Patient Tobacco Use Status: Never used Tobacco Allergies No Known Allergies Allergy (Verified 05/01/24 08:32) HPI HPI Comments 2 History of Present Illness0 Details 49 y/o female patient who presents to [facility] walk in clinic with c/o pain left foot great Toe that started back in February. She does report an injury to her Toe, Jar of Black Pepper fell her Toe. [facility] Medical History (Updated 05/01/24 @ 09:10 by Angie Toure NP) Paronychia of great toe of left foot Contusion of great toe of left foot Knee pain, bilateral Carpal tunnel syndrome Accelerated essential hypertension Normal Pap smear Hyperlipidemia HTN (hypertension) Family History Father Heart problem HTN (hypertension) Mother No problems noted. 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 Swelling, redness, small cyst on the boarder of Nailbed Assessment & Plan Assessment & Plan (1) Contusion of great toe of left foot: Code(s): S90.112A - Contusion of left great toe without damage to nail, initial encounter Qualifiers: Damage to nail status: with damage Encounter type: initial encounter Q ualified Code(s): S90.212A - Contusion of left great toe with damage to nail, initial encounter Plan: Xray ordered. (2) Paronychia of great toe of left foot: Code(s): L03.032 - Cellulitis of left toe Plan: Ordered Abx Orders: Orders 2 XR toe LT min 2V Today S90.112A - Contusion of left great toe without damage to nail, initial encounter Medications: New 2 doxycycline hyclate 100 mg PO BID 20 caps 0RF 10 days L03.032 - Cellulitis of left toe Coding Level of Care Code Est Pt Level 4 (75200) Diagnoses Contusion of left great toe with damage to nail, initial encounter S90.212A Damage to nail status: with damage Encounter type: initial encounter Paronychia of great toe of left foot L03.032 Time Spent (min) 20
== END 2024-05-01 09:10 | disposition home or self-care (01) ==
PROVIDERS: PCP Internal Medicine; Visit Provider Nurse Practitioner Family
DX: S90.212A Contusion of left great toe with damage to nail, initial encounter (principal); L03.032 Cellulitis of left toe

== ENCOUNTER → 2024-05-01 08:54 | Outpatient (BNV) | payer OTHER, SELFPAY | PROVIDERS: PCP Internal Medicine; Visit Provider Radiology Diagnostic Radiology | DX: S90.112A Contusion of left great toe without damage to nail, initial encounter (principal) | CPT/HCPCS: 73660 ==

== ENCOUNTER 2024-05-24 11:53 | Outpatient (AMB) | payer OTHER, SELFPAY ==
--- OUTSIDE RECORDS SUMMARY | 2024-05-24 12:29 | XMS_ITS | Data Portability ---
Author Organization [place] - [facility], Allergy Address [address] [place] [id number] Care Team Providers Care [facility] Cook Name Role Phone AIMEEJUAN RAMON Primary Care Provider [phone] Assessment Encounter Date Assessment Date Assessment LastModified by Organization Details LastModified Time 05/01/2024 05/01/2024 49 year old female presents for evaluation of left otorrhea. Otologic exam demonstrates left EAC is erythematous with purulent otorrhea. Recommend topical CiproDex twice daily into affected ear for 14 days. Reviewed drop administration and water precautions. We obtained culture of left EAC today and will adjust treatment based on results. Patient will return for revaluation in 2-3 weeks to assess for infection resolution. Will offer audiometric testing once infection resolves. Patient agrees with plan. She is scheduled with Dr. Ham on 05/24/24 for middle ear evaluation. [email or web address] Not available 05/01/2024 17:39:33 05/16/2024 05/16/2024 49 year old female presents for evaluation of left otorrhea. She reports otorrhea resolved with topical Ciprodex. She reports her hearing has returned to baseline. Otologic exam demonstrates left EAC is without obstruction or otorrhea. Left TM is generally thickened and atelectatic. Patient will return for middle ear evaluation with Dr. Ham on 05/24/[address] Pantoja. [email or web address] Not available 05/16/2024 11:19:40 Plan of Treatment Reminders Order Date Submit Date Provider Last Modified By Organization Details Last Modified Time Details Appointments Establish ed 10 2024 01:30P M DALIA HAM MD Not available Not available Not available Lab fungus, culture, unspecifi ed specimen 2024 025 [email or web address] [facility], [address], [address], [place], [address], 05/08/2024 11:52:39 culture, bacterial 2024 025 [email or web address] [facility], [address], [address], [place], [address], 05/08/2024 11:52:39 Referral None recorded. Procedures None recorded. Surgeries None recorded. Imaging None recorded. Medication Orders ciproflox acin 0.3 %-dexamet hasone 0.1 % ear drops,janae pension 2024 025 [id number], [address] [place], [address], 05/16/2024 10:57:06 Patient TargetsNo targets recorded. Patient InstructionsNo instructions recorded. Reason for Referral None Reported. Problems Name Problem SNOMED Code Status Onset Date Resolution Date Notes Provider Name and Address Organization Details Recorded Time Snoring 54218779 Active 2022 Snoring; Note: Date Diagnosed : 3 10:04 AM (R06.83) Not Available [facility] 4 03:12:16 Conductiv e hearing loss 38457945 Active 2022 Conductiv e hearing loss, unilatera l, left ear, with unrestric freedom hearing on the contralat eral side; Note: Date Diagnosed : 3 9:31 AM (H90.12) Not Available [facility] 4 03:12:15 Polyp of left middle ear 41493649425 50857 Active 2022 Polyp of left middle ear; Note: Date Diagnosed : 3 10:04 AM (H74.42) Not Available [facility] 4 03:12:14 Otorrhea of left ear 46787618853 79611 Active 2022 Otorrhea, left ear; Note: Date Diagnosed : 3 10:04 AM (H92.12) Not Available [facility] 4 03:12:14 Obesity 953522034 Active 2022 Other obesity; Note: Date Diagnosed : 3 10:04 AM (E66.8) Not Available [facility] 4 03:12:16 Otorrhea 06280875 Active 2024 JARETH CAI PA-C [address] [place] [address],[place] [address], [place], [address] , [facility] - [facility] 5 14:00:43 Problem Notes None recorded. Medical Equipment None Reported. Medications Name Sig Start Date Stop Date Status Note LastModified by Organization Details LastModified Time doxycycli ne hyclate 100 mg capsule 05/16 completed Not Available Not Available Not Available atorvasta tin 20 mg tablet active Medicati on ID: [id number] B rand Name: atorvast atin Sen d Method: E-Prescr ibed Sub s Allowed: subs OK Speci al Instruct ion: TAKE 1 TABLET BY MOUTH DAILY Me dication GenericN francesco: atorvast atin Not Available Not Available Not Available amlodipin e 5 mg tablet active Medicati on ID: [id number] B rand Name: amlodipi ne Send Method: E-Prescr ibed Sub s Allowed: subs OK Speci al Instruct ion: TAKE 1 TABLET BY MOUTH DAILY Me dication GenericN francesco: amlodipi ne Not Available Not Available Not Available Cipro 500 mg tablet Take 1 tablet by mouth twice a day 05/16 completed Medicati on ID: [id number] D uration Value: 10 Brand Name: Cipro Se nd Method: E-Prescr ibed Sub s Allowed: subs OK Medic ationGen ericName : Cipro Not Available Not Available Not Available lisinopri l 40 mg tablet active Medicati on ID: [id number] B rand Name: lisinopr il Send Method: E-Prescr ibed Sub s Allowed: subs OK Speci al Instruct ion: TAKE 1 TABLET BY MOUTH DAILY Me dication GenericN francesco: lisinopr il Not Available Not Available Not Available atenolol 50 mg tablet active Medicati on ID: [id number] B rand Name: atenolol Send Method: E-Prescr ibed Sub s Allowed: subs OK Medic ationGen ericName : atenolol Not Available Not Available Not Available ciproflox acin 0.3 %-dexamet hasone 0.1 % ear drops,janae pension INSTILL 4 DROPS IN LEFT EAR TWICE A DAY FOR 14 DAYS, FOR LEFT EXTERNAL EAR INFECTIO N. 05/16 completed Not Available Not Available Not Available Vitals Date Recorded Body height Body mass index (BMI) Body weight Provider Name and Address Organization Details Last Updated DateTime 05/01/2024 165.1 cm 31 kg/m2 05429.18 g Kralirobert Macdonald [facility] 05/01/2024 13:43:59 Date Recorded Body height Body mass index (BMI) Body weight Provider Name and Address Organization Details Last Updated DateTime 05/16/2024 162.56 cm 30.7 kg/m2 59490.03 g Karolina Mcnallyjae [facility] 05/16/2024 10:56:46 Social History None recorded. Functional Status None recorded. Mental Status None recorded. Family History Nothing Reported. Medical History No medical history recorded. Gynecological HistoryNo gynecological history recorded. Obstetrics History GPAL:G 0 P 0 0 0 0 Past Encounters Encounter ID Performer Location Encounter Start Date Encounter Closed Date Diagnosis/Indication Diagnosis SNOMED-CT Code Diagnosis ICD10 Code Diagnosis Note [id number] JUANJOSE RINALDI MD [facility] [address] [address] 05/01/2024 13:24:41 05/01/2024 14:01:56 Conductive hearing loss 17038866 H90.12 Otorrhea of left ear 373 2084564 077484 H92.12 [id number] DALIA HAM MD [facility] [address] [address] 05/16/2024 10:45:47 05/16/2024 11:52:15 Otorrhea of left ear 7848623496 290211 H92.12 Health Concerns Section Related Observation LastModified by Organization Detai ls LastModified Time None Recorded Concern Status LastModified by Organization Details LastModified Time None Recorded Advance Directives Directive None Recorded Payers Encounter Date Sequence Insurance Name Policy Number Policy Weldon Covered Member ID Weldon Member ID Guarantor Name 05/01/2024 1 [employer] (HMO) [id number] Lucy Lucero [id number] Lucy Lucero 05/16/2024 1 [employer] (HMO) [id number] Lucy Lucero [id number] Lucy Lucero Notes Date Note Type Note Provider Name and Address Organization Details Recorded Time 05/01/2024 text/html 49yo upper sorbian-speaking female with chronic ear disease presents with for evaluation of the ears. She reports left otorrhea x2 months. She endorses associated otorrhagia. Trialed amoxicillin and unknown ear drops, with minimal improvement. Patient is scheduled with Dr. Ham 05/24/24. She was seen previously for a large granulation polyp with otorrhea. She reports a sweet taste in her mouth despite not eating sweet foods. JUANJOSE PANTOJA MD [address] [place] [address],[address], [address], [facility] - [facility] 05/02/2024 07:52:10 05/16/2024 text/html 49 year old miki marinelli presents for evaluation of left otorrhea. She trialed topical Ciprodex for 14 days. She reports symptoms resolved. She reports her hearing has returned to baseline. DALIA AHM MD [address] [place] [address],[address], [phone], [facility] - [facility] 05/17/2024 07:35:02 OBGyn Episode No OBEpisode recorded.
--- OUTSIDE RECORDS SUMMARY | 2024-05-24 12:29 | XMS_ITS | Continuity of Care Document ---
Author Organization [place] - [facility], [facility] Address [address] [place] [address] Care Team Providers Care Restrooms Or Lounges Maid Name Role Phone PITA YUANNA Primary Care Provider Assessment Encounter Date Assessment Date Assessment LastModified by Organization Details LastModified Time 05/16/2024 05/16/2024 49 year old female presents for evaluation of left otorrhea. She reports otorrhea resolved with topical Ciprodex. She reports her hearing has returned to baseline. Otologic exam demonstrates left EAC is without obstruction or otorrhea. Left TM is generally thickened and atelectatic. Patient will return for middle ear evaluation with Dr. Ham on 05/24/[address] Pollack. [email or web address] Not available 05/16/2024 11:19:40 Plan of Treatment Reminders Order Date Submit Date Provider Last Modified By Organization Details Last Modified Time Details Appointments Establish ed 10 2024 01:30P M DALIA HAM MD Not available Not available Not available Lab None recorded. Referral None recorded. Procedures None recorded. Surgeries None recorded. Imaging None recorded. Medication Orders None recorded. Patient TargetsNo targets recorded. Patient InstructionsNo instructions recorded. Reason for Referral None Reported. Problems Name Problem SNOMED Code Status Onset Date Resolution Date Notes Provider Name and Address Organization Details Recorded Time Snoring 12248856 Active 2022 Snoring; Note: Date Diagnosed : 3 10:04 AM (R06.83) Not Available [facility] 4 03:12:16 Conductiv e hearing loss 84518030 Active 2022 Conductiv e hearing loss, unilatera l, left ear, with unrestric freedom hearing on the contralat eral side; Note: Date Diagnosed : 3 9:31 AM (H90.12) Not Available [facility] 4 03:12:15 Polyp of left middle ear 95395531272 03588 Active 2022 Polyp of left middle ear; Note: Date Diagnosed : 3 10:04 AM (H74.42) Not Available [facility] 4 03:12:14 Otorrhea of left ear 89789091271 94108 Active 2022 Otorrhea, left ear; Note: Date Diagnosed : 3 10:04 AM (H92.12) Not Available [facility] 4 03:12:14 Obesity 461557482 Active 2022 Other obesity; Note: Date Diagnosed : 3 10:04 AM (E66.8) Not Available [facility] 4 03:12:16 Otorrhea 09921988 Active 2024 JARETH CAI PA-C [address] [place] [address], [place], [address] , [facility] - [facility] 5 14:00:43 Problem Notes None recorded. Medical Equipment None Reported. Medications Name Sig Start Date Stop Date Status Note LastModified by Organization Details LastModified Time doxycycli ne hyclate 100 mg capsule 05/16 completed Not Available Not Available Not Available atorvasta tin 20 mg tablet active Medicati on ID: [id number] B rand Name: atorvast atin Sen d Method: E-Prescr ibed Sub s Allowed: subs OK Speci al Instruct ion: TAKE 1 TABLET BY MOUTH DAILY Me dication GenericN francesco: atorvast atin Not Available Not Available Not Available amlodipin e 5 mg tablet active Medicati on ID: [id number] B rand Name: amlodipi ne Send Method: E-Prescr ibed Sub s Allowed: subs OK Speci al Instruct ion: TAKE 1 TABLET BY MOUTH DAILY Me dication GenericN francesco: amlodipi ne Not Available Not Available Not Available Cipro 500 mg tablet Take 1 tablet by mouth twice a day 05/16 completed Medicati on ID: [id number] D uration Value: 10 Brand Name: Cipro Se nd Method: E-Prescr ibed Sub s Allowed: subs OK Medic ationGen ericName : Cipro Not Available Not Available Not Available lisinopri l 40 mg tablet active Medicati on ID: [id number] B rand Name: lisinopr il Send Method: E-Prescr ibed Sub s Allowed: subs OK Speci al Instruct ion: TAKE 1 TABLET BY MOUTH DAILY Me dication GenericN francesco: lisinopr il Not Available Not Available Not Available atenolol 50 mg tablet active Medicati on ID: [id number] B rand Name: atenolol Send Method: E-Prescr [...] Updated DateTime 05/16/2024 162.56 cm 30.7 kg/m2 09679.03 g Karolina Guzman [place] - [facility] 05/16/2024 10:56:46 Social History None recorded. Functional Status None recorded. Mental Status None recorded. Family History Nothing Reported. Medical History No medical history recorded. Gynecological HistoryNo gynecological history recorded. Obstetrics History GPAL:G 0 P 0 0 0 0 Past Encounters Encounter ID Performer Location Encounter Start Date Encounter Closed Date Diagnosis/Indication Diagnosis SNOMED-CT Code Diagnosis ICD10 Code Diagnosis Note [id number] JUANJOSE RINALDI MD [facility] [address] [place] [address] 05/01/2024 13:24:41 05/01/2024 14:01:56 Conductive hearing loss 25668733 H90.12 Otorrhea of left ear 346 0930749 661818 H92.12 [id number] DALIA HAM MD [facility] [address] [place] [address] 05/16/2024 10:45:47 05/16/2024 11:52:15 Otorrhea of left ear [id number] 115283 H92.12 Health Concerns Section Related Observation LastModified by Organization Detai ls LastModified Time None Recorded Concern Status LastModified by Organization Details LastModified Time None Recorded Payers Encounter Date Sequence Insurance Name Policy Number Policy Weldon Covered Member ID Weldon Member ID Guarantor Name 05/16/2024 1 PENDING SALE TO [employer] - DIRECT - [place] (HMO) [id number] Lucy Lucero [id number] Lucy Lucero Notes Date Note Type Note Provider Name and Address Organization Details Recorded Time 05/16/2024 text/html 49 year old female presents for evaluation of left otorrhea. She trialed topical Ciprodex for 14 days. She reports symptoms resolved. She reports her hearing has returned to baseline. DALIA HAM MD [address] [place] [address], [address], [facility] - [facility] 05/17/2024 07:35:02 OBGyn Episode No OBEpisode recorded.
--- OUTSIDE RECORDS SUMMARY | 2024-05-24 12:29 | XMS_ITS | Continuity of Care Document ---
Author Organization [place] - [facility], [facility] Address [address] [place] [address] Care Team Providers Care Support Team Assoc Name Role Phone PITA YUANNA Primary Care Provider [phone] Assessment Encounter Date Assessment Date Assessment LastModified [...] ear evaluation. [email or web address] Not available 05/01/2024 17:39:33 Plan of Treatment Reminders Order Date Submit Date Provider Last Modified By Organization Details Last Modified Time Details Appointments Establish ed 10 2024 01:30P Vane HAM MD Not available Not available Not available Lab fungus, culture, unspecifi ed specimen 2024 [id number] [email or web address] [facility], [address] , [address], [place], [address], 05/08/2024 11:52:39 culture, bacterial 2024 025 [email or web address] [facility], [address], [address], [place], [address], 05/08/2024 11:52:39 Referral None recorded. Procedures None recorded. Surgeries None recorded. Imaging None recorded. Medication Orders ciproflox acin 0.3 %-dexamet hasone 0.1 % ear drops,janae pension 2024 025 [id number], [address] [facility], [place], [address], 05/16/2024 10:57:06 Patient TargetsNo targets recorded. Patient InstructionsNo instructions recorded. Reason for Referral None Reported. Problems Name Problem SNOMED Code Status Onset Date Resolution Date Notes Provider Name and Address Organization Details Recorded Time Snoring 39459800 Active 2022 Snoring; Note: Date Diagnosed : 3 10:04 AM (R06.83) Not Available [facility] 4 03:12:16 Conductiv e hearing loss 70527415 Active 2022 Conductiv e hearing loss, unilatera l, left ear, with unrestric freedom hearing on the contralat eral side; Note: Date Diagnosed : 3 9:31 AM (H90.12) Not Available [facility] 4 03:12:15 Polyp of left middle ear 79391041066 61807 Active 2022 Polyp of left middle ear; Note: Date Diagnosed : 3 10:04 AM (H74.42) Not Available [facility] 4 03:12:14 Otorrhea of left ear 85675622432 15044 Active 2022 Otorrhea, left ear; Note: Date Diagnosed : 3 10:04 AM (H92.12) Not Available [facility] 4 03:12:14 Obesity 091291055 Active 2022 Other obesity; Note: Date Diagnosed : 3 10:04 AM (E66.8) Not Available [facility] 4 03:12:16 Otorrhea 60893921 Active 2024 JARETH CAI PA-C [address] [place] [address],[facility] [address], [place], [address] , [facility] - [facility] 14:00:43 Problem Notes None recorded. Medical Equipment None Reported. Medications Name Sig Start Date Stop Date Status Note LastModified by Organization Details LastModified Time doxycycli ne hyclate 100 mg capsule 05/16 completed Not Available Not Available Not Available atorvasta tin 20 mg tablet active Medicati on ID: [id number] B rand Name: atorvast atin Sen d Method: E-Prescr ibed Sub s Allowed: subs OK Speci al Instruct ion: TAKE 1 TABLET BY MOUTH DAILY Me dication GenericN francesco: atorvast atin Not Available Not Available Not Available amlodipin e 5 mg tablet active Medicati on ID: [id number] B rand Name: amlodipi ne Send Method: E-Prescr ibed Sub s Allowed: subs OK Speci al Instruct ion: TAKE 1 TABLET BY MOUTH DAILY Me dication GenericN francesco: amlodipi ne Not Available Not Available Not Available Cipro 500 mg tablet Take 1 tablet by mouth twice a day 05/16 completed Medicati on ID: [id number] D uration Value: 10 Brand Name: Cipro Se nd Method: E-Prescr ibed Sub s Allowed: subs OK Medic ationGen ericName : Cipro Not Available Not Available Not Available lisinopri l 40 mg tablet active Medicati on ID: [id number] B rand Name: lisinopr il Send Method: E-Prescr ibed Sub s Allowed: subs OK Speci al Instruct ion: TAKE 1 TABLET BY MOUTH DAILY Me dication GenericN francesco: lisinopr il Not Available Not Available Not Available atenolol 50 mg tablet active Medicati on ID: [id number] B rand Name: atenolol Send Method: E-Prescr [...] Updated DateTime 05/01/2024 165.1 cm 31 kg/m2 13170.18 g Paris Chanml [place] - [facility] 05/01/2024 13:43:59 Social History None recorded. Functional Status None recorded. Mental Status None recorded. Family History Nothing Reported. Medical History No medical history recorded. Gynecological HistoryNo gynecological history recorded. Obstetrics History GPAL:G 0 P 0 0 0 0 Past Encounters Encounter ID Performer Location Encounter Start Date Encounter Closed Date Diagnosis/Indication Diagnosis SNOMED-CT Code Diagnosis ICD10 Code Diagnosis Note [id number] JUANJOSE RINALDI MD [facility] [address] [address] 05/01/2024 13:24:41 05/01/2024 14:01:56 Conductive hearing loss 58285186 H90.12 Otorrhea of left ear 475 3806961 593650 H92.12 Health Concerns Section Related Observation LastModified by Organization Detai ls LastModified Time None Recorded Concern Status LastModified by Organization Details LastModified Time None Recorded Payers Encounter Date Sequence Insurance Name Policy Number Policy Weldon Covered Member ID Weldon Member ID Guarantor Name 05/01/2024 1 [facility] [employer] - DIRECT - [place] (HMO) [id number] Lucy Lucero [id number] Lucy Lucero Notes Date Note Type Note Provider Name and Address Organization Details Recorded Time 05/01/2024 text/html 49yo filipino-speaking female with chronic ear disease presents with [...] not eating sweet foods. JUANJOSE PANTOJA MD [address] [place] [address], [place], [address], [place] - [facility] 05/02/2024 07:52:10 OBGyn Episode No OBEpisode recorded.
--- NOTE | 2024-05-24 12:44 | MHC.PC.OV ---
Vital Signs 05/24/24 12:46 Height 5 ft 4 in Weight 203 lb BMI 34.8 BP 110/74 Blood Pressure Location Rt brachial Position Sitting Respiration 18 Pulse 57 Pulse Source Pulse Oximeter Temp 98.2 F Temp Source Oral Pulse Oximetry (%) 96 Oxygen Delivery Method Room Air Intake Visit Reasons: Follow up after walk in visit needs referral Intake Note: Pt is here today for a follow up visit after being seen in a walk in for L big toe infection. Allergies No Known Allergies Allergy (Verified 05/24/24 12:50) Medication List - Last Reconciled 05/24/24 by Maribell Neff MD amlodipine 5 mg PO DAILY atenolol 50 mg PO DAILY atorvastatin 20 mg PO DAILY lisinopril 40 mg PO DAILY meloxicam 15 mg PO DAILY ybzvyfjiwhmb-Pc-mebj-minerals (Women's Daily Formula) tabs PO naproxen sodium 220 mg PO BID PRN Tobacco use date assessed: 05/24/24 Dental Screening Dental Screen Date: 05/24/24 Did you have a dental visit in the last 12 months?: Yes Did you have a dental problem in the last 6 months where you did not have access to dental care?: No Was dental information given to patient?: Patient has dentist HPI Follow up after walk in visit needs referral HPI Details Patient presents complaining of the pain swelling around her left great toenail for 3 months. Patient was seen in walk in and prescribed doxycycline without significant improvement. She denies fever chills. Patient restarted taking her medications for hypertension and hyperlipidemia. [facility] Medical History (Updated 05/01/24 @ 09:10 by Angie Toure NP) Paronychia of great toe of left foot Contusion of great toe of left foot Knee pain, bilateral Carpal tunnel syndrome Accelerated essential hypertension Normal Pap smear Hyperlipidemia HTN (hypertension) Family History Father Heart problem HTN (hypertension) Mother No problems noted. 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 1. Little interest or pleasure in doing things: not at all 2. Feeling down, depressed, or hopeless: not at all 3. Trouble falling or staying asleep, or sleeping too much: not at all 4. Feeling tired or having little energy: not at all 5. Poor appetite or overeating: not at all 6. Feeling bad about yourself - or that you are a failure or have let yourself or your family down: not at all 7. Trouble concentrating on things, such as reading the newspaper or watching television: not at all 8. Moving or speaking so slowly that other people could have noticed. Or the opposite - being so fidgety or restless that you have been moving around a lot more than usual: not at all 9. Thoughts that you would be better off or of hurting yourself in some way: not at all Total score: 0 Depression Screening Interpretation: Negative Depression Screening Done: Yes 10579 - PHQ-9 Billing: Yes Source: Developed by Drs. Ta Wright, Taryn Castellanos, Jair Hawthorne and colleagues, with an educational margaret from [employer]. Thrive Questionnaire Date Thrive assessed: 05/24/24 I am a: Patient What is your living situation today?: I have a steady place to live Within the past 12 months, did the food you bought not last and you didn't have the money to get more?: Never true Within the past 12 months, did you worry whether your food would run out before you got money to buy more?: Never true Do you have trouble paying for medicines?: No Do you have trouble getting transportation to medical appointments?: No Do you have trouble paying your heating and electricity bill?: No Do you have trouble taking care of your child, family member or friend?: No Do you have trouble with day-to-day activities such as bathing, preparing meals, shopping, managing finances, etc.?: No Are you currently unemployed and looking for a job?: No Are you interested in more education?: No Please select the resources that you would like help with: None Currently or been in a relationship where the following occur: I choose not to answer THRIVE Score: 0 AUDIT C Alcohol Use Questionnaire (AUDIT-C) 1. How often do you have a drink containing alcohol?: Monthly or less 2. How many drinks containing alcohol do you have on a typical day when you are drinking?: 1 or 2 3. How often do you have six or more drinks on one occasion?: Never Total Score: 1 LETY-7 AMB Questionnaire LETY-7 Date LETY - 7 assessed: 05/24/24 Feeling nervous, anxious, or on edge: 0 = Not at all Not being able to stop or control worryin = Not at all Worrying too much about different things: 0 = Not at all Trouble relaxin = Not at all Being so restless that it is hard to sit still: 0 = Not at all Becoming easily annoyed or irritable: 0 = Not at all Feeling afraid as if something awful might happen: 0 = Not at all Total LETY-7 score (0-4 normal; 5-9 mild; 10-14 moderate; 15-21 severe): 0 Source: Developed by Drs. Ta Wright, Taryn Castellanos, Jair Hawthorne and colleagues, with an educational margaret from [employer]. LETY-7 Assessment Billing LETY-7 Assessment Tool: LETY-7 Assessment 98087 Review of Systems Const All systems reviewed & are unremarkable except as noted in HPI and below Eyes Reports no additional complaints ENT Reports no additional complaints Card Reports no additional complaints Resp Reports no additional complaints GI Reports no additional complaints Reports no additional complaints Physical exam (Primary Care) Vital Signs: Last Vital Signs Temp 98.2 F 05/24/24 12:46 Pulse 57 05/24/24 12:46 Resp 18 05/24/24 12:46 BP 110/74 05/24/24 12:46 Pulse Ox 96 05/24/24 12:46 Oxygen Delivery Method Room Air 05/24/24 12:46 BMI result Body Mass Index 34.8 Tobacco/Smoking Status: Tobacco use Status Tobacco use date assessed 05/24/24 05/24/24 12:55 Patient Tobacco Use Status Never used Tobacco 05/24/24 12:55 e-Cigarette/Vaping Use Never Used 05/24/24 12:55 PHQ-9: PHQ-9 Score PHQ-9: Total score 0 05/24/24 13:19 Depression Screening Interpretation: Negative Thrive Assessment: Date of Thrive Assessment Date Thrive assessed 05/24/24 05/24/24 12:55 Currently or been in a relationship where the following occur: I choose not to answer Const General: no acute distress HENMT Head: Yes normal to inspection Resp Effort & Inspection: normal respiratory effort Auscultation: clear to auscultation bilaterally Cardio Rhythm: regular rhythm Heart sounds: S1 normal heart sound present and S2 normal heart sound present GI Inspection: Yes normal to inspection Extrem Other: There is erythema swelling purulent discharge from nail bed of the first toenail Coding Level of Care Code Est Pt Level 4 (06969) Diagnoses HTN (hypertension) I10 Hyperlipidemia E78.5 Paronychia of great toe of left foot L03.032 Additional Codes LETY-7 Assessment Billing - LETY-7 Assessment Tool: LETY-7 Assessment 73779 ([id number]) PHQ-9 - 69437 - PHQ-9 Billing: Yes ([id number]) Assessment & Plan Assessment & Plan (1) HTN (hypertension): Code(s): I10 - Essential (primary) hypertension Category: Medical Plan: Continue current medications (2) Hyperlipidemia: Code(s): E78.5 - Hyperlipidemia, unspecified Category: Medical Plan: Restart statin (3) Paronychia of great toe of left foot: Code(s): L03.032 - Cellulitis of left toe Category: Medical Plan: Augmentin for 10 days is prescribed patient is referred to Podiatry Orders: Orders Comprehensive [place]. Panel Fast Today E78.5 - Hyperlipidemia, unspecified, I10 - Essential (primary) hypertension UA w Microscopic Today E78.5 - Hyperlipidemia, unspecified, I10 - Essential (primary) hypertension Complete Blood Count Auto Diff Today E78.5 - Hyperlipidemia, unspecified, I10 - Essential (primary) hypertension Lipid Panel Today E78.5 - Hyperlipidemia, unspecified, I10 - Essential (primary) hypertension TSH reflex Free T4 Today E78.5 - Hyperlipidemia, unspecified, I10 - Essential (primary) hypertension Referrals Podiatry Referral L03.032 - Cellulitis of left toe Medications: New amoxicillin-pot clavulanate 875-125 mg 1 tab PO BID 20 tabs 0RF Refilled amlodipine 5 mg PO DAILY 90 tabs 3RF lisinopril 40 mg PO DAILY 90 tabs 3RF atenolol 50 mg PO DAILY 90 tabs 3RF atorvastatin 20 mg PO DAILY 90 tabs 3RF
[2024-05-24 12:46] VITALS: BP 110/74; PULSE 57; RESP 18; TEMP 36.8; O2SAT 96; BMI 34.8
== END 2024-05-24 13:22 | disposition home or self-care (01) ==
PROVIDERS: PCP Internal Medicine; Visit Provider Internal Medicine
DX: I10 Essential (primary) hypertension (principal); E78.5 Hyperlipidemia, unspecified; L03.032 Cellulitis of left toe

== ENCOUNTER → 2024-05-24 11:53 | Outpatient (BNVA) | payer OTHER, SELFPAY | PROVIDERS: PCP Internal Medicine; Visit Provider Internal Medicine | DX: I10 Essential (primary) hypertension (principal); E78.5 Hyperlipidemia, unspecified; L03.032 Cellulitis of left toe | CPT/HCPCS: 96127; 99212 ==

== ENCOUNTER 2024-12-20 07:40 | Outpatient (REF) | payer OTHER, SELFPAY ==
[2024-12-20 10:07] LABS: Appearance Urine Hazy; Glucose Urine UA Negative (Negative); PH 6.0 (5.0-9.0); Specific Gravity - Urine 1.010 (1.005-1.025); UMIC TRIGGER UA YES
[2024-12-20 10:22] LABS: MANUAL DIFF FLAG NO
[2024-12-20 10:35] LABS: Hematocrit 37.0 % (37.0-47.0); Hemoglobin 12.2 g/dl (12.0-16.0); Imm Gran Abs Auto 0.02 X10*3/uL (0.00-0.03); Imm Gran Pct Auto 0.3 % (0.0-0.4); Lymphocytes Absolute Auto 2.5 X10*3/uL (1.2-4.9); Mean Corpuscular HGB Conc 33.0 g/dl (31.0-35.0); Mean Corpuscular Hemoglobin 30.1 pg (27.0-33.0); Mean Corpuscular Volume 91.4 fL (80.0-98.0); NRBC Abs Auto 0.000 X10*3/uL (0.0-0.012); NRBC Pct Auto 0.0 /100WBC (0.0-0.2); Platelet Count 270 X10*3/uL (160-400); Red Blood Count 4.05 X10*6/uL (4.20-5.50); White Blood Count 6.1 X10*3/uL (4.8-10.8)
[2024-12-20 10:52] LABS: Alanine Aminotransferase 24 U/L (0-31); Albumin Level 4.1 g/dL (3.5-5.0); Alkaline Phosphatase 39 U/L (39-117); Anion Gap 10 (12-20); Aspartate Amino Transferase 26 U/L (5-31); Blood Urea Nitrogen 14 mg/dL (9-16); Calcium 8.7 mg/dL (8.4-10.2); Carbon Dioxide 24 mmol/L (22-29); Chloride 109 mmol/L (96-108); Cholesterol 287 mg/dL (<200); Estimated Glomerular Filt Rate > 60; HDL Cholesterol 62 mg/dL (>40); Potassium 4.3 mmol/L (3.3-5.1); Sodium 139 mmol/L (135-145); Total Protein 7.1 g/dL (6.5-8.0); Triglycerides 201 mg/dL (<150)
== END 2024-12-20 07:41 | disposition home or self-care (01) ==
LOC: HO.HMGCLDS 07:40
PROVIDERS: PCP Internal Medicine; Visit Provider Internal Medicine
DX: I10 Essential (primary) hypertension (principal); E78.5 Hyperlipidemia, unspecified
CPT/HCPCS: 36415; 80053; 80061; 81001; 84443; 85025

== ENCOUNTER 2025-01-03 07:33 | Outpatient (REF) | payer OTHER, SELFPAY ==
--- OUTSIDE RECORDS SUMMARY | 2025-01-03 07:36 | XMS_ITS | Data Portability ---
Author Organization [place] - [facility], Allergy Address [address] [address] Care Team Providers Care Sap Gatherer Name Role Phone PITA YUANNA Primary Care [...] Dr. Pantoja. [email or web address] Not available 05/16/2024 11:19:40 05/24/2024 05/24/2024 Left ear is demonstrating a canal wall down mastoidectomy cavity. She has a thickened, intact tympanic membrane and a relatively shallow mastoid cavity. The cavity was debrided of accumulated squamous debris, no signs of chronic infection. Today we discussed how the surgery in the left ear will require manual cleanings to prevent debris impaction and subsequent infection. Recommend follow-up in 6 months for next mastoid debridement. Depending on the degree of debris accumulation, we can then determine the proper cleaning interval for going forward. [email or web address] Not available 05/24/2024 14:33:43 11/28/2024 11/28/2024 Left ear is demonstrating a canal wall down mastoidectomy cavity. She has a thickened, intact tympanic membrane and a relatively shallow mastoid cavity. The cavity was debrided of accumulated squamous debris. Low-level infection noted in the anterior sulcus. Recommend 5 days of topical Cortisporin drops to be used twice a day. Today I gave the patient and her reassurance that there is no need to consider further surgery in this ear but she will need continuing intermittent debridement to prevent accumulation and infection. Recommend vinegar and alcohol rinses twice a week to help maintain the health of the cavity. I will see her back in 6 months to assess her response and at that time we can decide whether she still needs cleanings every 6 months or if this interval can be extended. [email or web address] Not available 11/28/2024 09:32:24 Plan of Treatment Reminders Order Date Submit Date Provider Last Modified By Organization Details Last Modified Time Details Appointments Establish ed 10 2025 09:50A M DALIA HAM MD Not available Not available Not available Lab fungus, culture, unspecifi ed specimen 2024 025 [facility] (Centralized Electronic Ordering - All Locations), Patient Can Go To The Location Of Their Choice, [id number] 05/30/2024 09:16:59 culture, bacterial 2024 025 [facility] (Centralized Electronic Ordering - All Locations), Patient Can Go To The Location Of Their Choice, [id number] 05/30/2024 09:16:58 Referral None recorded. Procedures None recorded. Surgeries None recorded. Imaging None recorded. Medication Orders neomycin- polymyxin -hydrocor t 3.5 mg-10,000 unit/mL-1 % ear drops,janae p 2024 025 [facility]/Pharmacy #[id number], [address] [place], [address], 12/10/2024 05:01:37 ciproflox acin 0.3 %-dexamet hasone 0.1 % ear drops,janae pension 2024 025 [facility]/Pharmacy #[id number], [address] [facility], [place], [address], 05/16/2024 10:57:06 Patient TargetsNo targets recorded. Patient InstructionsNo instructions recorded. Reason for Referral None Reported. Results Created Date Observation Date Name Description Value Unit Range Abnormal Flag Note LastModifiedBy Organization Detail LastModifiedTime 05/01/1905/04/2024 ANAER OBIC AND AEROB IC CULTU RE aerobic culture Final report abnormal Not Available [facility] ([facility]) [address] [place], [address], 05/30/2024 09:16:58 05/01/1905/04/2024 ANAER OBIC AND AEROB IC CULTU RE result 1 Escher ichia coli abnormal Moder ate growt h Not Available [facility] ([facility]) [address] [place], [address], 05/30/2024 09:16:58 05/01/19 25 05/04/2024 ANAER OBIC AND AEROB IC CULTU RE result 2 COMMEN T abnormal Coryn ebact erium amyco latum Heavy growt h Susce ptibi lity not loretta lly perfo rmed on this organ ism. Not Available [facility] ([facility]) [address] [facility], [place], [address], 05/30/2024 09:16:58 05/01/1905/04/2024 ANAER OBIC AND AEROB IC CULTU RE result 3 COMMEN T abnormal Coryn ebact erium aurim ucosu m Heavy growt h Susce ptibi lity not loretta lly perfo rmed on this organ ism. Not Available [facility] ([facility]) [address] [place], [address], 05/30/2024 09:16:58 05/01/19 25 05/04/2024 ANAER OBIC AND AEROB IC CULTU RE antimicrobia l susceptibili ty Commen t S = Susce ptibl e; I = Inter media te; R = Resis tant P = Posit kary; N = Negat kary MICS are expre ssed in micro grams per mL Antib iotic RSLT# 1 RSLT# 2 RSLT# 3 RSLT# 4 Amoxi cilli n/Cla vulan ic Acid S Ampic illin R Cefaz ruth ann R Cefep mera S Cefox itin S Cefpo doxim e S Ceftr iaxon e S Cipro floxa jacinta S Ertap enem S Genta micin S Levof loxac in S Merop enem S Piper acill in/Ta zobac berrios S Tetra cycli ne S Tobra mycin S Trime thopr im/Torres lfa S Not Available [facility] ([facility]) [address] [facility], [place], [address], 05/30/2024 09:16:58 05/01/19 25 05/05/2024 ANAER OBIC AND AEROB IC CULTU RE anaerobic culture Final report abnormal Not Available [facility] ([facility]) [address] [facility], [place], [address], 05/30/2024 09:16:58 05/01/19 25 05/05/2024 ANAER OBIC AND AEROB IC CULTU RE result 1 Prevot denis interm edia abnormal Heavy growt h Studi es at [facility] Holdi ngs have confi rmed the obser vatio ns of other s who have demon strat ed that Prevo tella , Porph yromo margaret and Bacte roide s speci es other than Bacte roide s fragi lis group are routi fredrick susce ptibl e to Cefox itin, Chlor amphe cindy , and Metro nidaz ole and are usual ly resis tant to Penic illin . Beta lacta viviane negat kary. Not Available [facility] ([facility]) [address] [facility], [place], [address], 05/30/2024 09:16:58 05/01/19 25 05/05/2024 ANAER OBIC AND AEROB IC CULTU RE result 2 COMMEN T abnormal Fusob acter ium nucle atum Light growt h Studi es at [facility] Holdi ngs have confi rmed the obser vatio ns of other s who have demon strat ed that Fusob acter ium speci es are routi fredrick susce ptibl e to Cefox itin, Chlor amphe cindy , Clind amyci n, Metro nidaz ole and Penic illin . Beta lacta viviane negat kary. Not Available [facility] ([facility]) [address] [facility], [place], [address], 05/30/2024 09:16:58 05/01/19 25 05/02/2024 FUNGU S CULTU RE WITH STAIN fungus stain Final report Not Available [facility] ([facility]) [address] [facility], [place], [address], 05/30/2024 09:16:59 05/01/1905/02/2024 FUNGU S CULTU RE WITH STAIN result 1 COMMEN T GOYO/C alcof luor prepa ratio n: no fungu s obser ana. Not Available [facility] ([facility]) [address] [place], [address], 05/30/2024 09:16:59 05/01/1905/30/2024 FUNGU S CULTU RE WITH STAIN fungus (mycology) culture Final report Not Available [facility] ([facility]) [address] [place], [address], 05/30/2024 09:16:59 05/01/1905/30/2024 FUNGU S CULTU RE WITH STAIN result 1 COMMEN T No yeast or mold isola freedom after 4 weeks . Not Available [facility] ([facility]) [address] [facility], [place], [address], 05/30/2024 09:16:59 Result Notes None recorded. Problems Name Problem SNOMED Code Status Onset Date Resolution Date Notes Provider Name and Address Organization Details Recorded Time Snoring 72830994 Active 2022 Snoring; Note: Date Diagnosed : 3 10:04 AM (R06.83) Not Available [facility] 4 03:12:16 Polyp of left middle ear 19441416473 18061 Active 2022 Polyp of left middle ear; Note: Date Diagnosed : 3 10:04 AM (H74.42) Not Available [facility] 4 03:12:14 Otorrhea of left ear 23896934965 34016 Active 2022 Otorrhea, left ear; Note: Date Diagnosed : 3 10:04 AM (H92.12) DALIA HAM MD [address] [place] [address], [place], [address] , [facility] 5 09:30:00 Obesity 983250160 Active 2022 Other obesity; Note: Date Diagnosed : 3 10:04 AM (E66.8) Not Available [facility] 4 03:12:16 Conductiv e hearing loss 58409768 Active 2022 Conductiv e hearing loss, unilatera l, left ear, with unrestric freedom hearing on the contralat eral side; Note: Date Diagnosed : 3 9:31 AM (H90.12) Not Available [facility] 4 03:12:15 Postmasto idectomy complicat ion 97062348 Active 2024 DALIA HAM MD [address] [place] [address], [place], [address] , [facility] 5 14:26:27 Postmasto idectomy complicat ion 75965813 Active 2024 DALIA HAM MD [address] [place] [address], [place], [address] , [facility] - [facility] 5 14:26:38 Conductiv e hearing loss 53363519 Active 2024 DALIA HAM MD [address] [facility],[place] [address], [place], [address] , [facility] - [facility] 5 14:26:47 Problem Notes None recorded. Procedures Surgical History Date Name Laterality Status Provider Name and Address Organization Details Recorded Time 5 Debridement of Mastoid Cavity left completed DALIA HAM MD [address] [facility],[place] [address], [place], [address], [facility] - [facility] 11/28/2024 09:32:32 5 Debridement of Mastoid Cavity left completed DALIA HAM MD [address] [facility],[place] [address], [place], [address], [facility] - [facility] 05/24/2024 14:26:50 Imaging Results None recorded. Procedure Notes None recorded. Medical Equipment None Reported. Allergies No known drug allergies Medications Name Sig Start Date Stop Date Status Note LastModified by Organization Details LastModified Time amoxicill in 500 mg capsule TAKE 1 CAPSULE BY MOUTH TWICE A DAY 11/28 completed Not Available Not Available Not Available doxycycli ne hyclate 100 mg capsule 05/16 completed Not Available Not Available Not Available atorvasta tin 20 mg tablet TAKE 1 TABLET BY MOUTH EVERY DAY active Not Available Not Available No t Available amlodipin e 5 mg tablet TAKE 1 TABLET BY MOUTH EVERY DAY active Not Available Not Available No t Available Cipro 500 mg tablet Take 1 tablet by mouth twice a day 05/16 completed Medicati on ID: [id number] D uration Value: 10 Brand Name: Cipro Se nd Method: E-Prescr ibed Sub s Allowed: subs OK Medic ationGen ericName : Cipro Not Available Not Available Not Available mupirocin 2 % topical ointment APPLY 1 APPLICAT ION ON THE SKIN TWICE A DAY LEFT GREAT TOE WOUNDS active Not Available Not Available No t Available lisinopri l 40 mg tablet TAKE 1 TABLET BY MOUTH EVERY DAY active Not Available Not Available No t Available atenolol 50 mg tablet TAKE 1 TABLET BY MOUTH EVERY DAY active Not Available Not Available No t Available amoxicill in 875 mg-potass ium clavulana te 125 mg tablet TAKE 1 TABLET BY MOUTH TWICE A DAY 11/28 completed Not Available Not Available Not Available neomycin- polymyxin -hydrocor t 3.5 mg-10,000 unit/mL-1 % ear drops,janae p Instill 4 drops twice a day by otic route for 5 days, for left ear. 12/10 completed Not Available Not Available Not Available ciproflox [...] Updated DateTime 05/01/2024 165.1 cm 31 kg/m2 20309.18 g Paris Macdonald [place] - [facility] 05/01/2024 13:43:59 Date Recorded Body height Body mass index (BMI) Body weight Provider Name and Address Organization Details Last Updated DateTime 05/16/2024 162.56 cm 30.7 kg/m2 94508.03 g Karolina Guzman [place] - [facility] 05/16/2024 10:56:46 Date Recorded Body height Body weight Provider Name and Address Organization Details Last Updated DateTime 05/24/2024 162.56 cm 44168.03 g Stefany Vazquez [place] [facility] 05/24/2024 13:50:39 Date Recorded Body height Provider Name an d Address Organization Details Last Updated DateTime 11/28/2024 162.56 cm Stefany Vazquez [facility] 11/28/2024 09:20:50 Social History None recorded. Functional Status None recorded. Mental Status None recorded. Family History Nothing Reported. Medical History Condition Response High Cholesterol Y Hypertension Y Gynecological HistoryNo gynecological history recorded. Obstetrics History GPAL:G 0 P 0 0 0 0 Past Encounters Encounter ID Performer Location Encounter Start Date Encounter Closed Date Diagnosis/Indication Diagnosis SNOMED-CT Code Diagnosis ICD10 Code Diagnosis IMO Codes Diagnosis Note [id number] JARETH CAI PA-C [facility] [address] [place] [address] 05/01/2024 13:24:41 05/01/2024 14:01:56 Conductive hearing loss 51536996 H90.12 Otorrhea of left ear 557 3304689 835273 H92.12 [id number] JARETH CAI PA-C [facility] [address] [place] [address] 05/16/2024 10:45:47 05/16/2024 11:52:15 Otorrhea of left ear 2709517546 741884 H92.12 [id number] DALIA HAM MD [facility] [address] [place] [address] 05/24/2024 13:45:29 05/24/2024 14:33:56 Postmastoidectomy complication 03358806 H95.199 Conductive hearing loss 54200425 H90.12 Patient's audiogram shows left-sided moderate Conductive hearing loss with well maintained speech discrimina tion. There is enough hearing loss to affect day-to-day hearing performanc e. We discussed in detail the pros and cons of amplificat ion (hearing aids). We discussed the connection between untreated hearing loss and increased risk of dementia, falling and accidents. After full discussion , the patient expressed interest in learning more about amplificat ion options. Accordingl y I have provided a copy of the audiogram, a [facility], and medical clearance for amplificat ion so the patient can [facility]. Patient [place] medically [place]. [id number] DALIA HAM MD [facility] [address] [place] [address] 11/28/2024 09:12:37 11/28/2024 09:31:53 Postmastoidectomy complication 86552584 H95.199 Conductive hearing loss 78394810 H90.12 Otorrhea of left ear 603 8129218 229247 H92.12 [id number] Health Concerns Section Related Observation LastModified by Organization Detai ls LastModified Time None Recorded Concern Status LastModified by Organization Details LastModified Time None Recorded Advance Directives Directive None Recorded Payers Insurance Date Sequence Insurance Name Policy Number Policy Weldon Covered Member ID Weldon Member ID Guarantor Name 11/28/2024 1 [facility] [employer] - [place] (HMO) [id number] Lucy Lucero [id number] Lucy Lucero 11/28/2024 1 [employer] Lucy Greenjo [id number] Lucy Lucero 11/28/[address] [facility] HE[employer]AN - [employer] (HMO) [id number] Lucy Lucero [id number] Lucy Lucero 11/28/2024 1 [place] [facility] Lucy Greenjo [id number] Lucy Lucero Notes Date Note Type Note Provider Name and Address Organization Details Recorded Time 05/01/2024 text/html ROS as noted in the [facility] 49yo moroccan-speaking female with chronic ear disease presents with [...] not eating sweet foods. JUANJOSE PANTOJA MD [address] [place] [address], [address], [facility] - [facility] 05/02/2024 07:52:10 05/16/2024 text/html ROS as noted in the HPI 49 year old female presents for evaluation of left otorrhea. She trialed topical Ciprodex for 14 days. She reports symptoms resolved. She reports her hearing has returned to baseline. DALIA HAM MD [address] [place] [address],[address], [address], [facility] - [facility] 05/17/2024 07:35:02 05/24/2024 text/html Patient with history of chronic left ear disease, status post surgical procedure in [place] around 2011. Patient presented to Dr. Pantoja back in late 2022 with purulent discharge and granulation. Treated with Ciprodex drops. Patient subsequently lost to follow-up. Patient presented back in April 2024 with left otorrhea. Patient placed on Ciprodex drops, and follow-up exam on May 16 showed resolution of the infection. Currently the ear is feeling good DALIA HAM MD [address] [facility],[address], [address], [place] - [facility] 05/24/2024 14:34:36 11/28/2024 text/html Patient with history of chronic left ear disease, status post surgical procedure in [place] around 2011. Patient presented to Dr. Pantoja back in late 2022 with purulent discharge and granulation. Treated with Ciprodex drops. Patient subsequently lost to follow-up. Patient presented back in April 2024 with left otorrhea. Patient placed on Ciprodex drops, and follow-up exam on May 16 showed resolution of the infection. Currently the ear is feeling good DALIA HAM MD [address] [facility] [address], [place], [address], [facility] - [facility] 11/28/2024 09:32:57 OBGyn Episode No OBEpisode recorded.
[2025-01-03 10:36] LABS: Appearance Urine Clear; Glucose Urine UA Negative (Negative); PH 5.5 (5.0-9.0); Specific Gravity - Urine 1.015 (1.005-1.025); UMIC TRIGGER UA YES
== END 2025-01-03 07:34 | disposition home or self-care (01) ==
LOC: HO.HMGCLDS 07:33
PROVIDERS: PCP Internal Medicine; Visit Provider Internal Medicine
DX: I10 Essential (primary) hypertension (principal); E78.5 Hyperlipidemia, unspecified; Z79.1 Long term (current) use of non-steroidal anti-inflammatories (NSAID); Z79.899 Other long term (current) drug therapy
CPT/HCPCS: 81001; 87086; 87147; 99212

== ENCOUNTER 2025-01-03 12:02 | Outpatient (AMB) | payer OTHER, SELFPAY ==
[2025-01-03 12:21] VITALS: BP 148/96; PULSE 56; RESP 19; TEMP 36.8; O2SAT 97; BMI 35.9
--- NOTE | 2025-01-03 12:21 | A.OFFPC_ITS ---
Vital Signs 01/03/25 12:21 Height 5 ft 4 in Weight 209 lb BMI 35.9 BP 148/96 H Blood Pressure Location Lt brachial Position Sitting Respiration 19 Pulse 56 Pulse Source Pulse Oximeter Temp 98.3 F Temp Source Oral Pulse Oximetry (%) 97 Oxygen Delivery Method Room Air Intake Visit Reasons: 6m follow up Intake Note: Pt is here today for 6 months follow up visit. Allergies atorvastatin Adverse Reaction (Verified 01/03/25 13:06) Nausea and Vomiting Medication List - Last Reconciled 01/03/25 by Maribell Neff MD amlodipine 5 mg PO DAILY atenolol 50 mg PO DAILY lisinopril 40 mg PO DAILY sjrvaaqrmvsv-Le-hhcc-minerals (Women's Daily Formula) tabs PO naproxen sodium 220 mg PO BID PRN rosuvastatin (Crestor) 20 mg PO DAILY triamterene-hydrochlorothiazid 37.5-25 mg 1 tab PO DAILY Tobacco use date assessed: 01/03/25 Dental Screening Dental Screen Date: 05/24/24 HPI 6m follow up HPI Details Patient presents for the follow-up hypertension and hyperlipidemia. She could not tolerate atorvastatin developed stomach upset nausea. [facility] Medical History (Updated 01/03/25 @ 13:19 by Maribell Neff MD) Colonoscopy refused Mammogram declined Paronychia of great toe of left foot Contusion of great toe of left foot Knee pain, bilateral Carpal tunnel syndrome Accelerated essential hypertension Normal Pap smear Hyperlipidemia HTN (hypertension) Family History Father Heart problem HTN (hypertension) Mother No problems noted. 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 1. Little interest or pleasure in doing things: not at all 2. Feeling down, depressed, or hopeless: not at all 3. Trouble falling or staying asleep, or sleeping too much: not at all 4. Feeling tired or having little energy: not at all 5. Poor appetite or overeating: not at all 6. Feeling bad about yourself - or that you are a failure or have let yourself or your family down: not at all 7. Trouble concentrating on things, such as reading the newspaper or watching television: not at all 8. Moving or speaking so slowly that other people could have noticed. Or the opposite - being so fidgety or restless that you have been moving around a lot more than usual: not at all 9. Thoughts that you would be better off or of hurting yourself in some way: not at all Total score: 0 Depression Screening Interpretation: Negative Depression Screening Done: Yes Source: Developed by Drs. Ta Wright, Taryn Castellanos, Jair Hawthorne and colleagues, with an educational margaret from [employer] Thrive Questionnaire Date Thrive assessed: 05/24/24 I am a: Patient What is your living situation today?: I have a steady place to live Within the past 12 months, did the food you bought not last and you didn't have the money to get more?: Never true Within the past 12 months, did you worry whether your food would run out before you got money to buy more?: Never true Do you have trouble paying for medicines?: No Do you have trouble getting transportation to medical appointments?: No Do you have trouble paying your heating and electricity bill?: No Do you have trouble taking care of your child, family member or friend?: No Do you have trouble with day-to-day activities such as bathing, preparing meals, shopping, managing finances, etc.?: No Are you currently unemployed and looking for a job?: No Are you interested in more education?: No Please select the resources that you would like help with: None Currently or been in a relationship where the following occur: I choose not to answer THRIVE Score: 0 LETY-7 AMB Questionnaire LETY-7 Date LETY - 7 assessed: 05/24/24 Source: Developed by Drs. Ta Wright, Taryn Castellanos, Jair Hawthorne and colleagues, with an educational margaret from [employer] Review of Systems Const All systems reviewed & are unremarkable except as noted in HPI and below Eyes Reports no additional complaints ENT Reports no additional complaints Card Reports no additional complaints Resp Reports no additional complaints GI Reports no additional complaints Reports no additional complaints Physical exam (Primary Care) Vital Signs: Last Vital Signs Temp 98.3 F 01/03/25 12:21 Pulse 56 01/03/25 12:21 Resp 19 01/03/25 12:21 BP 148/96 H 01/03/25 12:21 Pulse Ox 97 01/03/25 12:21 Oxygen Delivery Method Room Air 01/03/25 12:21 BMI result Body Mass Index 35.9 Tobacco/Smoking Status: Tobacco use Status Tobacco use date assessed 01/03/25 01/03/25 12:30 Patient Tobacco Use Status Never used Tobacco 01/03/25 12:21 e-Cigarette/Vaping Use Never Used 01/03/25 12:21 PHQ-9: PHQ-9 Score PHQ-9: Total score 0 01/03/25 12:30 Depression Screening Interpretation: Negative Thrive Assessment: Date of Thrive Assessment Date Thrive assessed 05/24/24 01/03/25 12:21 Currently or been in a relationship where the following occur: I choose not to answer Const General: no acute distress HENMT Head: Yes normal to inspection Face and sinus: Yes normal facial exam Resp Effort & Inspection: normal respiratory effort Auscultation: clear to auscultation bilaterally Cardio Rhythm: regular rhythm Heart sounds: S1 normal heart sound present and S2 normal heart sound present GI Inspection: Yes normal to inspection Palpation (GI): Soft to palpation Coding Level of Care Code Est Pt Level 4 (36501) Diagnoses HTN (hypertension) I10 Hyperlipidemia E78.5 Assessment & Plan Assessment & Plan (1) HTN (hypertension): Code(s): I10 - Essential (primary) hypertension Category: Medical Plan: Low-sodium diet regular physical activity discussed with the patient. Add Dyazide to atenolol lisinopril and amlodipine. Patient was advised to monitor her blood pressure at home. She will follow-up in 1 month (2) Hyperlipidemia: Comment: Intolerant to atorvastatin stomach upset Code(s): E78.5 - Hyperlipidemia, unspecified Category: Medical Plan: Try 20 mg of Crestor check lipid profile in 1 month Orders: Orders Lipid Panel 1 Month E78.5 - Hyperlipidemia, unspecified, I10 - Essential (primary) hypertension Comprehensive Met. Panel 1 Month E78.5 - Hyperlipidemia, unspecified, I10 - Essential (primary) hypertension Medications: New rosuvastatin (Crestor) 20 mg PO DAILY 90 tabs 0RF triamterene-hydrochlorothiazid 37.5-25 mg 1 tab PO DAILY 90 tabs 0RF Discontinued atorvastatin Discontinued Reason: Doctor's Order 20 mg PO DAILY 90 tabs 3RF
== END 2025-01-03 13:21 | disposition home or self-care (01) ==
PROVIDERS: PCP Internal Medicine; Visit Provider Internal Medicine
DX: I10 Essential (primary) hypertension (principal); E78.5 Hyperlipidemia, unspecified